=== PATIENT | male | born 1935 | race Caucasian/White ===

== ENCOUNTER 2016-11-12 13:27 | Emergency (ER) | payer MEDICARE ==
[2016-11-12] MEDS ORDERED: cloNIDine HCl 0.1 MG TAB ONE (14:10)
[2016-11-12 14:12] LABS: #Monocytes 0.3 thou/uL (0.11-0.59); #Neutrophils 4.2 thou/uL (1.40-6.50); %Basophils 0.3 % (0.0-1.0); %Eosinophils 0.4 % (0.0-10.0); %Monocytes 5.8 % (0.0-10.0); Hematocrit 48.7 % (42.0-52.0); Mean Platelet Volume 10.7 fL (7.4-10.4); White Blood Cell (WBC) Count 5.5 thou/uL (4.8-10.8)
[2016-11-12 14:19] LABS: Calcium 8.9 mg/dL (7.8-10.44); Chloride 102 mmol/L (98-107)
[2016-11-12 14:26] LABS: PTT 46.5 SEC (22.9-36.1); Prothrombin Time 16.4 SEC (12.0-14.7)
[2016-11-12 14:31] LABS: Troponin I 0.063 ng/mL (< 0.028)
[2016-11-12 14:33] LABS: ALT (SGPT) 28 U/L (0-55); AST (SGOT) 34 U/L (5-34); Alkaline Phosphatase 59 U/L (40-150); BUN (Urea Nitrogen) 12 mg/dL (8.4-25.7); Bilirubin, Total 1.1 mg/dL (0.2-1.2); CK (CPK) 105 U/L (30-200); Calc. Creatinine Clearance 0 mL/min (70-130); Carbon Dioxide 28 mmol/L (23-31); Estimated GFR-MDRD 71; Globulin 3.2 g/dL (2.4-3.5); Protein, Total 7.7 g/dL (5.8-8.1)
[2016-11-12 14:40] LABS: Anion Gap 14 mmol/L (10-20)
[2016-11-12 14:50] LABS: Bilirubin Negative (Negative); Blood, Urine Small (Negative); Glucose, Urine (Dipstick) Negative (Negative); Ketone, Urine Negative (Negative); Nitrite Negative (Negative); Protein, Urine (Dipstick) 100 mg/dL (Neg-Trace); Urobilinogen 0.2 mg/dL (0.2-1.0)
[2016-11-12 15:04] LABS: Bacteria/HPF None Seen HPF (None Seen); RBC/HPF 0-3 HPF (0-3); Squamous Epithelial 0-3 HPF (0-3); WBC/HPF None Seen HPF (0-3)
[2016-11-12] MEDS ORDERED: Pot Chloride/Pot Bicarb/Cit Ac 25 mEq Effervescent Tablet ONE (15:07)
--- NOTE | 2016-11-12 16:51 | ERRECORD ---
[facility] EMERGENCY RECORD HPI WEAK-DIZZY (17:01 MPUR) CHIEF COMPLAINT: Denies weakness, Patient presents for evaluation of dizziness, Denies lightheadedness, Denies mental status changes. HISTORIAN: History provided by patient, 81 y.o. male who awoke from a nap and felt dizzy. he checked his BP and found it to be high so he came to the ED. Pt other than some vertigo has no complaints. QUALITY: Patient is alert and oriented to person, place and time, Dorothy coma score is 15. ASSOCIATED WITH: No associated ataxia, No associated chest pain, No associated chills, No associated ear pain, No associated fever, No associated gait disturbance, No associated headache, No associated nausea, No associated palpitations, No associated vomiting, No associated visual changes, No associated upper respiratory infection. EXACERBATED BY: Patient's condition exacerbated by nothing. RELIEVED BY: Patient's condition relieved by nothing. ROS (17:03 MPUR) CONSTITUTIONAL: Historian denies fever. EYES: Historian denies eye pain. ENT: Historian denies rhinorrhea. CARDIOVASCULAR: Historian denies chest pain. RESPIRATORY: Historian denies cough. GI: Historian denies diarrhea, Historian denies vomiting. GENITOURINARY MALE: Historian denies dysuria. MUSCULOSKELETAL: Historian denies arthralgias. SKIN: Historian denies rash. NEUROLOGIC: Historian denies seizures. see also HPI. ENDOCRINE: Historian denies skin changes. HEMO/LYMPHATIC: Historian denies easy bruising. PAST MEDICAL HISTORY (13:46 JPAR) MEDICAL HISTORY: Past medical history includes cardiac history, coronary artery disease, Treated with stent placement, , Past medical history includes cardiac history, coronary artery disease, congestive heart failure, arrhythmia, atrial fibrillation, Treated with a pacemaker, 8 years ago, Past medical history includes history of hyperlipidemia, high cholesterol, Past medical history includes history of hypertension, which has been treated. MALE SURGICAL HISTORY: PACEMAKER. 2nd pacemaker. PSYCHIATRIC HISTORY: No previous psychiatric history. SOCIAL HISTORY: Patient is a former tobacco user, smoked cigarettes, quit 3 years ago , Patient drinks socially, every week, Patient denies drug use,. KNOWN ALLERGIES No Known Allergies No Known Drug Allergies (Unconfirmed) &a-1R&a+25V*p+0X*[id number]*c202B*c15G*c2P*p-0X&a-25V&a+1R Name: Hugo Slater : 1935 M81 MedRec: [id number] AcctNum: [id number] Prepared: Alon Nov 12, 2016 17:15 by Interface Page [address] [facility] EMERGENCY RECORD CURRENT MEDICATIONS (13:44 JPAR) carvedilol: TABLET : Strength - 25 mg : ORAL Patient Dose: 25 mg Oral 2 times a day. furosemide: TABLET : Strength - 40 mg : ORAL Patient Dose: 60 mg Oral. lisinopril: TABLET : Strength - 20 mg : ORAL Patient Dose: 20 mg Oral 2 times a day (before meals). simvastatin: TABLET : Strength - 40 mg : ORAL Patient Dose: 20 mg Oral. tamsulosin: CAPSULE, EXT RELEASE 24 HR : Strength - 0.4 mg : ORAL Patient Dose: 0.4 mg Oral. gabapentin: CAPSULE : Strength - 300 mg : ORAL Patient Dose: once a day (at bedtime). amLODIPine: TABLET : Strength - 2.5 mg : ORAL Patient Dose: once a day. Xarelto: TABLET : Strength - 10 mg : ORAL Patient Dose: once a day (in the morning). VITAL SIGNS VITAL SIGNS: Pulse: 60, Resp: 16, Temp: 98.5 (Oral), Pain: 0, O2 sat: 97, Time: 11/12/2016 13:41. (13:41 JPAR) BP: 214/104, Pulse: 60, Resp: 16 (Non-Labored), O2 sat: 96 on Room Air, Time: 11/12/2016 14:03. (14:03 EPIE) BP: 161/71, Pulse: 60, Resp: 13, Pain: 0, O2 sat: 97, Time: 11/12/2016 14:12. (14:12 JPAR) BP: 177/67, Pulse: 60, Resp: 18, Pain: 0, O2 sat: 97, Time: 11/12/2016 14:50. (14:50 JPAR) BP: 161/84, Pulse: 60, Resp: 14, Pain: 0, O2 sat: 97, Time: 11/12/2016 16:07. (16:07 JPAR) BP: 168/85, Pulse: 60, Resp: 16, Pain: 0, O2 sat: 97, Time: 11/12/2016 16:30. (16:30 JPAR) PHYSICAL EXAM (17:03 MPUR) CONSTITUTIONAL: Vital signs reviewed. HEAD: Head exam included findings of head atraumatic. EYES: Eye exam included findings of eyelids normal to inspection, Sclera normal. ENT: Nose exam normal, no nasal deformity, mucous membranes moist. NECK: Trachea midline, no contusions. RESPIRATORY CHEST: Respiratory exam included findings of no respiratory distress, Breath sounds clear, no increased work of &a-1R&a+25V*p+0X*[id number]*c202B*c15G*c2P*p-0X&a-25V&a+1R Name: Hugo Slater : 1935 M81 MedRec: [id number] AcctNum: [id number] Prepared: FriNov 12, 2016 17:15 by Interface Page [address] [facility] EMERGENCY RECORD breathing, rate nl. CARDIOVASCULAR: Cardiovascular exam included findings of heart rate regular rate and rhythm, Heart sounds normal. ABDOMEN MALE: Abdominal exam included findings of abdomen nontender, no mass, no percussion. LOWER EXTREMITY: no cyanosis, no edema. NEURO: HINTS negative, Speech normal, Memory normal, alert, moving all extremities well. SKIN: Skin exam included findings of skin warm, dry, no rash. PSYCHIATRIC: Normal affect, Recent memory normal. MEDICATION ADMINISTRATION SUMMARY Drug Name: *potassium bicarb & chloride, Dose Ordered: 50 mEq, Route: Oral, Status: Given, Time: 15:15 11/12/2016, Drug Name: cloNIDine HCl, Dose Ordered: 0.1 mg, Route: Oral, Status: Given, Time: 14:11 11/12/2016, *Additional information available in notes, Detailed record available in Medication Service section. DOCTOR NOTES RE-EVALUATION: The patient's condition has improved, BP down, sx resolved, feels better after resting. (16:35 MPUR) TEXT: I have reviewed and agree with nurse's past medical, family, and social history as documented on chart. Pt's vital signs have been reviewed. (17:03 MPUR) D/W: Discussed this case with Dr. Barber, the primary care physician, reviewed pt hx, lab and need for F/U. (17:06 MPUR) PROBLEM LIST No recorded problems DIAGNOSIS (16:17 MPUR) FINAL: PRIMARY: Vertigo, ADDITIONAL: High BP. PRESCRIPTION (16:18 MPUR) cloNIDine HCl: TABLET : 0.1 mg : ORAL : Quantity: 1 Unit: tab(s) Route: ORAL Schedule: once a day Dispense: 14 May substitute. Refills: No Refills POTENTIAL SEVERE INTERACTION: carvedilol Override Rationale: Benefits outweigh risks. NOTES: take 1 a day for elevation of BP more than 170. No Refills. DISPOSITION PATIENT: Disposition Type: Discharge, Disposition: *Discharge Home. (16:17 MPUR) Patient left the department. (16:43 JPAR) Leos: DENILSON=MIKE Lerma, Ester ALEX=MIKE Mccabe, Clarence MPUR=MD Davon, Mynor &a-1R&a+25V*p+0X*[id number]*c202B*c15G*c2P*p-0X&a-25V&a+1R Name: Hugo Slater Michelle : 1935 M81 MedRec: [id number] AcctNum: [id number] Prepared: Alon Nov 12, 2016 17:15 by Interface Page 3 of 3 pMD MTDD
--- NOTE | 2016-11-12 17:02 | PICIS ---
[facility] EMERGENCY RECORD COMMUNICATIONS (14:42 JPAR) COMMUNICATIONS: Critical lab value, Notes: Lab reports CK 6.7. TRIAGE (13:43 JPAR) TRIAGE NOTES: Just woke up hypertensive and dizzy. (13:43 JPAR) PATIENT: NAME: Hugo Slater, AGE: 81, GENDER: male, : Fri1935, TIME OF GREET: FriNov 12, 2016 13:27, PREFERRED LANGUAGE: Serbian, ETHNICITY: Not or , ECODE BILLING MAP: [facility], SSN: [id number], Zip Code: [address], KG WEIGHT: 97.52, PHONE: daugh, , , PERSON ID: [id number], PCP: Elise IBRAHIM C. HENRY. (13:43 JPAR) COMPLAINT: LIGHT HEADED,DIZZY. (13:43 JPAR) ADMISSION: URGENCY: 3 Urgent, ADMISSION SOURCE: Home, TRANSPORT: CAR, BED: TRIAGE. (13:43 JPAR) ASSESSMENT: Assessment: hypertension, dizziness, Symptoms began 7 hours, Symptoms began 7 hours ago. (13:46 JPAR) SIRS SCORING: Heart Rate 55-109 (0), Temp range 96.8-101.1 (0), respiratory rate 12-24 (0), Mental Status altered: no (0), Infection or Suspected Infection: No. (13:46 JPAR) TRIAGE SCREENING: Patient denies suicidal ideation, Patient denies presence of domestic violence. (13:46 JPAR) PROVIDERS: TRIAGE NURSE: Clarence Mccabe RN. (13:43 JPAR) VITAL SIGNS: Pulse 60, Resp 16, Temp 98.5, (Oral), Pain 0, O2 Sat 97, Time 11/12/2016 13:41. (13:41 JPAR) PREVIOUS VISIT ALLERGIES: No Known Drug Allergies. (13:43 JPAR) No Known Drug Allergies. (13:46 JPAR) KNOWN ALLERGIES No Known Allergies No Known Drug Allergies (Unconfirmed) CURRENT MEDICATIONS (13:44 JPAR) carvedilol: TABLET : Strength - 25 mg : ORAL Patient Dose: 25 mg Oral 2 times a day. furosemide: TABLET : Strength - 40 mg : ORAL Patient Dose: 60 mg Oral. lisinopril: TABLET : Strength - 20 mg : ORAL Patient Dose: 20 mg Oral 2 times a day (before meals). simvastatin: TABLET : Strength - 40 mg : ORAL Patient Dose: 20 mg Oral. tamsulosin: CAPSULE, EXT RELEASE 24 HR : Strength - 0.4 mg : ORAL Patient Dose: 0.4 mg Oral. &a-1R&a+25V*p+0X*f8358Q*c202B*c15G*c2P*p-0X&a-25V&a+1R Name: Hugo Slater : 1935 M81 MedRec: [id number] AcctNum: [id number] Prepared: rosa Nov 12, 2016 17:21 by Interface Page 1 of 11 pMD [facility] EMERGENCY RECORD gabapentin: CAPSULE : Strength - 300 mg : ORAL Patient Dose: once a day (at bedtime). amLODIPine: TABLET : Strength - 2.5 mg : ORAL Patient Dose: once a day. Xarelto: TABLET : Strength - 10 mg : ORAL Patient Dose: once a day (in the morning). VITAL SIGNS VITAL SIGNS: Pulse: 60, Resp: 16, Temp: 98.5 (Oral), Pain: 0, O2 sat: 97, Time: 11/12/2016 13:41. (13:41 JPAR) BP: 214/104, Pulse: 60, Resp: 16 (Non-Labored), O2 sat: 96 on Room Air, Time: 11/12/2016 14:03. (14:03 EPIE) BP: 161/71, Pulse: 60, Resp: 13, Pain: 0, O2 sat: 97, Time: 11/12/2016 14:12. (14:12 JPAR) BP: 177/67, Pulse: 60, Resp: 18, Pain: 0, O2 sat: 97, Time: 11/12/2016 14:50. (14:50 JPAR) BP: 161/84, Pulse: 60, Resp: 14, Pain: 0, O2 sat: 97, Time: 11/12/2016 16:07. (16:07 JPAR) BP: 168/85, Pulse: 60, Resp: 16, Pain: 0, O2 sat: 97, Time: 11/12/2016 16:30. (16:30 JPAR) NURSING ASSESSMENT: CARDIOVASCULAR (13:43 JPAR) CONSTITUTIONAL: Patient arrives ambulatory, Gait steady, History obtained from patient, Patient appears comfortable, Patient cooperative, Patient alert, Oriented to person, place and time, Skin warm, Skin dry, Skin normal in color, Mucous membranes pink, Patient complains of Hypertension w/ dizziness. PAIN: Patient rates pain as 0 out of 10. CARDIOVASCULAR: Cardiovascular assessment findings include heart rate normal, Heart rhythm, paced, No ST changes noted, Left radial pulse +3(easily palpated, considered normal), Right radial pulse +3(easily palpated, considered normal), Left dorsalis pedis pulse +3(easily palpated, considered normal), Right dorsalis pedis pulse +3(easily palpated, considered normal). RESPIRATORY/CHEST: Breath sounds clear, Respiratory assessment findings include respiratory effort easy, Respirations regular, Conversing normally, Neck and chest exam findings include trachea midline, Chest expansion equal, Chest movement symmetrical, no signs of distress, no retractions noted, no cyanosis, no jugular vein distension, no tenderness to palpation, no crepitus noted, no subcutaneous emphysema noted, no deformity noted. SAFETY: Side rails up, Cart/Stretcher in lowest position, Call light within reach, Hospital ID band on. NURSING PROCEDURE: COMMUNICATIONS (16:21 EPIE) COMMUNICATIONS: Physician, contacted/paged at 1621, Returned call at 1621, Sunil LEONARD contacted at this time. &a-1R&a+25V*p+0X*v0530Q*c202B*c15G*c2P*p-0X&a-25V&a+1R Name: Hugo Slater : 1935 M81 MedRec: [id number] AcctNum: [id number] Prepared: Alon Nov 12, 2016 17:21 by Interface Page 2 of 11 pMD [facility] EMERGENCY RECORD NURSING PROCEDURE: DISCHARGE NOTE (16:38 JPAR) DISCHARGE: Patient discharged to home, ambulating without assistance, friend driving, accompanied by friend, Summary of Care printed/ provided, Patient requested and was provided an electronic copy of Discharge Instructions, Transition record given to patient, Discharge instructions given to patient, Simple or moderate discharge teaching performed, decrease sodium intake and consume more water, take BP meds as prescribed and take the clonidine when systolic above 170. Follow up with Sunil this week., Prescriptions given and instructions on side effects given, Name of prescription(s) given: Clonidine, Medication reconciliation form given, Above person(s) verbalized understanding of discharge instructions and follow-up care, Patient treated and evaluated by physician. BELONGINGS: Belongings and valuables with patient at time of discharge include:, Belongings remain with patient, Valuables remain with patient. SAFETY: Side rails up, Cart/Stretcher in lowest position, Call light within reach, Hospital ID band on, Friend(s) at bedside. NURSING PROCEDURE: EKG CHART (13:51 JPAR) PATIENT IDENTIFIER: Patient actively involved in identification process, Patient's identity verified by patient stating name, Patient's identity verified by patient stating date, Patient's identity verified by hospital ID bracelet, Patient's identity verified by family member. EKG: EKG indicated for Hypertensive crisis, 12 lead EKG performed on the left chest, first EKG. FOLLOW-UP: After procedure, EKG for interpretation given to Dr. Mays. SAFETY: Side rails up, Cart/Stretcher in lowest position, Call light within reach, Hospital ID band on. NURSING PROCEDURE: IV PATIENT IDENITIFIER: Patient actively involved in identification process, Patient's identity verified by patient stating name, Patient's identity verified by hospital ID bracelet. (14:02 EPIE) IV SITE 1: IV established, to the right hand, using a 20 gauge catheter, in one attempt, IV site prepped with CHLOROPREP, Saline lock established, Flushed with normal saline (mls): 10, Labs drawn at time of placement, labeled in the presence of the patient and sent to lab. (14:02 EPIE) FOLLOW-UP SITE 1: After procedure, no drainage at IV site, After procedure, no swelling at IV site, After procedure, no redness at IV site. (14:02 EPIE) FOLLOW-UP SITE 2: After procedure, 2x2 dressing applied, After procedure, no drainage at IV site, After procedure, no swelling at IV site, After procedure, no redness at IV site, IV discontinued, due to patient being discharged, catheter intact. (16:38 JPAR) &a-1R&a+25V*p+0X*p9332U*c202B*c15G*c2P*p-0X&a-25V&a+1R Name: Hugo Slater : 1935 M81 MedRec: [id number] AcctNum: [id number] Prepared: FriNov 12, 2016 17:21 by Interface Page 3 of 11 D [facility] EMERGENCY RECORD NURSING PROCEDURE: NURSE NOTES (15:18 JPAR) NURSES NOTES: Patient assisted to bathroom with steady gait, Patient is improving, Patient is awaiting disposition, Patient re-positioned to semi-Monsivais's position, Patient ambulating with steady gait, without assistance, not ataxic. ORDER DETAILS Order Name: Cardiac Profile w/CKMB & Troponin - I, Status: Active, Time: 13:53 11/12/2016, User: GRADY, - Ordered for: MD Mays Marcus, - Entered by: MD Mays Marcus - Tue Nov 12, 2016 13:53, - Quantity: 1, Order Name: CBC with Differential, Status: Active, Time: 13:53 11/12/2016, User: GRADY, - Ordered for: MD Mays Marcus, - Entered by: MD Mays Marcus - Tue Nov 12, 2016 13:53, - Quantity: 1, Order Name: CK (CPK), Status: Active, Time: 13:53 11/12/2016, User: GRADY, - Ordered for: MD Mays Marcus, - Entered by: MD Mays Marcus - Tue Nov 12, 2016 13:53, - Quantity: 1, Order Name: Comprehensive Metabolic Panel, Status: Active, Time: 13:53 11/12/2016, User: GRADY, - Ordered for: MD Mays Marcus, - Entered by: MD Mays Marcus - Tue Nov 12, 2016 13:53, - Quantity: 1, Order Name: EKG 12 Lead in Emergency Room, Status: Active, Time: 13:59 11/12/2016, User: GRADY, - Ordered for: MD Mays Marcus, - Entered by: MD Mays Marcus - Tue Nov 12, 2016 13:59, - Quantity: 1, Order Name: Protime with INR, Status: Active, Time: 13:59 11/12/2016, User: GRADY, - Ordered for: MD Mays Marcus, - Entered by: MD Mays Marcus - Tue Nov 12, 2016 13:59, - Quantity: 1, Order Name: PTT, Status: Active, Time: 13:59 11/12/2016, User: GRADY, - Ordered for: MD Mays Marcus, - Entered by: MD Mays Marcus - Tue Nov 12, 2016 13:59, - Quantity: 1, Order Name: SALINE LOCK, Status: Done, Time: 14:02 11/12/2016, User: DENILSON, - Ordered for: MD Mays Marcus, - Entered by: MD Mays Marcus - Tue Nov 12, 2016 13:59, - Quantity: 1, Order Name: Urinalysis with Microscopic, Status: Active, Time: 13:53 11/12/2016, User: GRADY, &a-1R&a+25V*p+0X*k7649D*c202B*c15G*c2P*p-0X&a-25V&a+1R Name: Hugo Slater : 1935 M81 MedRec: [id number] AcctNum: [id number] Prepared: FriNov 12, 2016 17:21 by Interface Page 4 of 11 D [facility] EMERGENCY RECORD - Ordered for: MD Mays Marcus, - Entered by: MD Mays Marcus - Tue Nov 12, 2016 13:53, - Quantity: 1. MEDICATION ADMINISTRATION SUMMARY Drug Name: *potassium bicarb & chloride, Dose Ordered: 50 mEq, Route: Oral, Status: Given, Time: 15:15 11/12/2016, Drug Name: cloNIDine HCl, Dose Ordered: 0.1 mg, Route: Oral, Status: Given, Time: 14:11 11/12/2016, *Additional information available in notes, Detailed record available in Medication Service section. MEDICATION SERVICE cloNIDine HCl: Order: cloNIDine HCl (clonidine HCl) - Dose: 0.1 mg : Oral POTENTIAL SEVERE INTERACTION: carvedilol - Benefits outweigh risks Ordered by: Mynor Mays MD Entered by: Mynor Mays MD FriNov 12, 2016 13:59 , Acknowledged by: Clarence Mccabe RN FriNov 12, 2016 14:09 Documented as given by: Clarence Mccabe RN Nov 12, 2016 14:11 Patient, Medication, Dose, Route and Time verified prior to administration. Patient appears Awake and alert- acceptable, Correct patient, time, route, dose and medication confirmed prior to administration, Patient advised of actions and side-effects prior to administration, Allergies confirmed and medications reviewed prior to administration, Patient in position of comfort, Side rails up, Cart in lowest position, Call light in reach. potassium bicarb & chloride: Order: potassium bicarb & chloride (potassium chloride/potassium bicarbonate/citric acid) - Dose: 50 mEq : Oral Schedule: Now Notes: 2-25 meq tabs (50 meq liquid K+) Ordered by: Mynor Mays MD Entered by: Mynor Mays MD FriNov 12, 2016 14:53 , Acknowledged by: Clarence Mccabe RN Nov 12, 2016 15:07 Documented as given by: Clarence Mccabe RN Nov 12, 2016 15:15 Patient, Medication, Dose, Route and Time verified prior to administration. Correct patient, time, route, dose and medication confirmed prior to administration, Patient advised of actions and side-effects prior to administration, Allergies confirmed and medications reviewed prior to administration, Patient in position of comfort, Side rails up, Cart in lowest position, Family at bedside, Call light in reach. HPI WEAK-DIZZY (17:01 MPUR) CHIEF COMPLAINT: Denies weakness, Patient presents for evaluation of dizziness, Denies lightheadedness, Denies mental status changes. HISTORIAN: History provided by patient, 81 y.o. male who awoke from a nap and felt dizzy. he checked his &a-1R&a+25V*p+0X*z9101F*c202B*c15G*c2P*p-0X&a-25V&a+1R Name: Hugo Slater : 1935 M81 MedRec: [id number] AcctNum: [id number] Prepared: FriNov 12, 2016 17:21 by Interface Page 5 of 11 pMD [facility] EMERGENCY RECORD BP and found it to be high so he came to the ED. Pt other than some vertigo has no complaints. QUALITY: Patient is alert and oriented to person, place and time, [place] coma score is 15. ASSOCIATED WITH: No associated ataxia, No associated chest pain, No associated chills, No associated ear pain, No associated fever, No associated gait disturbance, No associated headache, No associated nausea, No associated palpitations, No associated vomiting, No associated visual changes, No associated upper respiratory infection. EXACERBATED BY: Patient's condition exacerbated by nothing. RELIEVED BY: Patient's condition relieved by nothing. ROS (17:03 MPUR) CONSTITUTIONAL: Historian denies fever. EYES: Historian denies eye pain. ENT: Historian denies rhinorrhea. CARDIOVASCULAR: Historian denies chest pain. RESPIRATORY: Historian denies cough. GI: Historian denies diarrhea, Historian denies vomiting. GENITOURINARY MALE: Historian denies dysuria. MUSCULOSKELETAL: Historian denies arthralgias. SKIN: Historian denies rash. NEUROLOGIC: Historian denies seizures. see also HPI. ENDOCRINE: Historian denies skin changes. HEMO/LYMPHATIC: Historian denies easy bruising. PAST MEDICAL HISTORY (13:46 JPAR) MEDICAL HISTORY: Past medical history includes cardiac history, coronary artery disease, Treated with stent placement, , Past medical history includes cardiac history, coronary artery disease, congestive heart failure, arrhythmia, atrial fibrillation, Treated with a pacemaker, 8 years ago, Past medical history includes history of hyperlipidemia, high cholesterol, Past medical history includes history of hypertension, which has been treated. MALE SURGICAL HISTORY: PACEMAKER. 2nd pacemaker. PSYCHIATRIC HISTORY: No previous psychiatric history. SOCIAL HISTORY: Patient is a former tobacco user, smoked cigarettes, quit 3 years ago , Patient drinks socially, every week, Patient denies drug use,. PHYSICAL EXAM (17:03 MPUR) CONSTITUTIONAL: Vital signs reviewed. HEAD: Head exam included findings of head atraumatic. EYES: Eye exam included findings of eyelids normal to inspection, Sclera normal. ENT: Nose exam normal, no nasal deformity, mucous membranes moist. NECK: Trachea midline, no contusions. RESPIRATORY CHEST: Respiratory exam included findings of no &a-1R&a+25V*p+0X*i9069T*c202B*c15G*c2P*p-0X&a-25V&a+1R Name: Hugo Slater : 1935 M81 MedRec: [id number] AcctNum: [id number] Prepared: FriNov 12, 2016 17:21 by Interface Page 6 of 11 pMD [facility] EMERGENCY RECORD respiratory distress, Breath sounds clear, no increased work of breathing, rate nl. CARDIOVASCULAR: Cardiovascular exam included findings of heart rate regular rate and rhythm, Heart sounds normal. ABDOMEN MALE: Abdominal exam included findings of abdomen nontender, no mass, no percussion. LOWER EXTREMITY: no cyanosis, no edema. NEURO: HINTS negative, Speech normal, Memory normal, alert, moving all extremities well. SKIN: Skin exam included findings of skin warm, dry, no rash. PSYCHIATRIC: Normal affect, Recent memory normal. LAB INTERPRETATION (17:03 MPUR) INTERPRETATION: No significant lab abnormalities except as noted above. EVENTS TRANSFER: Triage to Emergency Triage. (FriNov 12, 2016 13:43 JPAR) Emergency Triage to Emergency Room -04. (13:51 JPAR) Removed from Emergency Emergency Room -04. (16:43 JPAR) DOCTOR NOTES RE-EVALUATION: The patient's condition has improved, BP down, sx resolved, feels better after resting. (16:35 MPUR) TEXT: I have reviewed and agree with nurse's past medical, family, and social history as documented on chart. Pt's vital signs have been reviewed. (17:03 MPUR) D/W: Discussed this case with Dr. Ibrahim, the primary care physician, reviewed pt hx, lab and need for F/U. (17:06 MPUR) PROBLEM LIST No recorded problems DIAGNOSIS (16:17 MPUR) FINAL: PRIMARY: Vertigo, ADDITIONAL: High BP. DISPOSITION PATIENT: Disposition Type: Discharge, Disposition: *Discharge Home. (16:17 MPUR) Patient left the department. (16:43 JPAR) INSTRUCTION (16:23 MPUR) FOLLOWUP: Elise IBRAHIM, Waqar MONAHAN, [facility], [address] [place] [id number], [phone]. SPECIAL: increase your potassium to 1 tablet a day. Follow up with Dr. Ibrahim in a week. Take meclizine 25 mg up to 3 times a day as needed for dizziness. (Ask your pharmacist for this medicine as it is available with a Rx.) &a-1R&a+25V*p+0X*a9717F*c202B*c15G*c2P*p-0X&a-25V&a+1R Name: Hugo Slater : 1935 M81 MedRec: [id number] AcctNum: [id number] Prepared: FriNov 12, 2016 17:21 by Interface Page 7 of 11 pMD [facility] EMERGENCY RECORD Take all your meds with you to the office next week so Dr. Ibrahim can see them. PRESCRIPTION (16:18 MPUR) cloNIDine HCl: TABLET : 0.1 mg : ORAL : Quantity: 1 Unit: tab(s) Route: ORAL Schedule: once a day Dispense: 14 May substitute. Refills: No Refills POTENTIAL SEVERE INTERACTION: carvedilol Override Rationale: Benefits outweigh risks. NOTES: take 1 a day for elevation of BP more than 170. No Refills. IMAGING *SUPPLY CHARGE SHEET: Image captured from scanner. (16:38 JPAR) *DISCHARGE INSTRUCTIONS RECEIPT: Image captured from scanner. (16:39 JPAR) *EKG: Image captured from scanner. (16:39 JPAR) ADMIN (17:07 MPUR) DIGITAL SIGNATURE: MD Mays Marcus. RESULTS LABORATORY: CK (CPK) Collection DT: FriNov 12, 2016 14:09, CK (CPK) 105 U/L, Range (30-200). (14:40 JPAR) Comprehensive Metabolic Panel Collection DT: FriNov 12, 2016 14:09, Sodium 141 mmol/L, Range (136-145), *Potassium 3.1 - L mmol/L, Range (3.5-5.1), Chloride 102 mmol/L, Range (98-107), Carbon Dioxide 28 mmol/L, Range (23-31), BUN (Urea Nitrogen) 12 mg/dL, Range (8.4-25.7), Creatinine 1.00 mg/dL, Range (0.7-1.3), Estimated GFR-MDRD 71 , Reference Range for Estimated GFR: Greater than 90, mL/min/1.73 m2 NOTE: The MDRD equation has not been validated for use, with the elderly (over 70 years of age), women, patients with, serious comorbid condition or persons with extremes of body size, muscle, mass, or nutritional status. , *Glucose 144 - H mg/dL, Range (83-110), Calcium 8.9 mg/dL, Range (7.8-10.44), Bilirubin, Total 1.1 mg/dL, Range (0.2-1.2), Protein, Total 7.7 g/dL, Range (5.8-8.1), NOTE: Plasma values are generally 0.3 to 0.5 g/dL higher than serum values, due to the presence of fibrinogen. , Albumin 4.5 g/dL, Range (3.4-4.8), Globulin 3.2 g/dL, Range (2.4-3.5), Alb/Glob Ratio 1.4 g/dL, Range (1.2-2.2), Alkaline Phosphatase 59 U/L, Range (40-150), AST (SGOT) 34 U/L, Range (5-34), &a-1R&a+25V*p+0X*l0823X*c202B*c15G*c2P*p-0X&a-25V&a+1R Name: Hugo Slater : 1935 M81 MedRec: [id number] AcctNum: [id number] Prepared: FriNov 12, 2016 17:21 by Interface Page 8 of 11 pMD [facility] EMERGENCY RECORD ALT (SGPT) 28 U/L, Range (0-55). (14:40 JPAR) Cardiac Profile w/CKMB & TropI Collection DT: FriNov 12, 2016 14:09, *Troponin I 0.063 - H ng/mL, Range (< 0.028), Reference Range , 0.00 - 0.028 ng/mL Negative 0.029 - 0.29 ng/mL , Indeterminate Greater or Equal to 0.3 ng/mL Strongly suggests [place] , . (14:40 JPAR) PTT Collection DT: FriNov 12, 2016 14:09, See comment below , Anticoagulant? OTHER; SEE COMMENTS Medical Necessity SUSPECT COAGULOPATHY , Comment Xatitoto Comment Elianeto , *PTT 46.5 - H SEC, Range (22.9-36.1). (14:40 JPAR) Protime with INR Collection DT: FriNov 12, 2016 14:09, See comment below , Anticoagulant? OTHER; SEE COMMENTS Medical Necessity SUSPECT COAGULOPATHY , Comment Xarelto Comment Elianeto , *Prothrombin Time 16.4 - H SEC, Range (12.0-14.7), INR-International Normal Ratio 1.3 , ATTENTION: READ CAREFULLY , The, recommended therapeutic ranges for oral anticoagulant treatments are: , , Low Intensity: 1.5 - 2.0 Moderate Intensity: 2.0, - 3.0 High Intensity (1): 2.5 - 3.5 High, Intensity (2): 3.0 - 4.0 CRITICAL: >, 4.0 . (14:40 JPAR) CBC with Differential Collection DT: FriNov 12, 2016 14:09, White Blood Cell (WBC) Count 5.5 thou/uL, Range (4.8-10.8), Red Blood Cell (RBC) Count 5.20 mill/uL, Range (4.70-6.10), Hemoglobin 16.0 g/dL, Range (14.0-18.0), Hematocrit 48.7 %, Range (42.0-52.0), Mean Corpuscular Volume 93.8 fl, Range (80.0-94.0), Mean Corpuscular Hemoglobin 30.8 pg, Range (27.0-31.0), Mean Corpuscular HGB CONC 32.8 g/dL, Range (32.0-36.0), RBC Distribution Width 12.6 %, Range (11.5-14.5), *Platelet Count 124 - L thou/uL, Range (130-400), *Mean Platelet Volume 10.7 - H fL, Range (7.4-10.4), *%Neutrophils 75.5 - H %, Range (42.0-75.0), &a-1R&a+25V*p+0X*d9039Y*c202B*c15G*c2P*p-0X&a-25V&a+1R Name: Hugo Slater : 1935 M81 MedRec: [id number] AcctNum: [id number] Prepared: FriNov 12, 2016 17:21 by Interface Page 9 of 11 pMD [facility] EMERGENCY RECORD *%Lymphocytes 18.0 - L %, Range (21.0-51.0), %Monocytes 5.8 %, Range (0.0-10.0), %Eosinophils 0.4 %, Range (0.0-10.0), %Basophils 0.3 %, Range (0.0-1.0), #Neutrophils 4.2 thou/uL, Range (1.40-6.50), *#Lymphocytes 1.0 - L thou/uL, Range (1.20-3.40), #Monocytes 0.3 thou/uL, Range (0.11-0.59), #Eosinphils 0.0 thou/uL, Range (0.0-0.7), #Basophils 0.0 thou/uL, Range (0.0-0.2). (14:40 JPAR) Cardiac Profile w/CKMB & TropI Collection DT: FriNov 12, 2016 14:09, Critical Call CKMBM CALLED W/READ BACK , *CKMB 6.7 - *H ng/mL, Range (0-6.6), NOTIFIED DR MAYS 2010.NW, *Troponin I 0.063 - H ng/mL, Range (< 0.028), Reference Range , 0.00 - 0.028 ng/mL Negative 0.029 - 0.29 ng/mL , Indeterminate Greater or Equal to 0.3 ng/mL Strongly suggests [place] , . (14:46 MPUR) CK (CPK) Collection DT: FriNov 12, 2016 14:09, CK (CPK) 105 U/L, Range (30-200). (14:46 MPUR) Comprehensive Metabolic Panel Collection DT: FriNov 12, 2016 14:09, Sodium 141 mmol/L, Range (136-145), *Potassium 3.1 - L mmol/L, Range (3.5-5.1), Chloride 102 mmol/L, Range (98-107), Carbon Dioxide 28 mmol/L, Range (23-31), Anion Gap 14 mmol/L, Range (10-20), BUN (Urea Nitrogen) 12 mg/dL, Range (8.4-25.7), Creatinine 1.00 mg/dL, Range (0.7-1.3), Estimated GFR-MDRD 71 , Reference Range for Estimated GFR: Greater than 90, mL/min/1.73 m2 NOTE: The MDRD equation has not been validated for use, with the elderly (over 70 years of age), women, patients with, serious comorbid condition or persons with extremes of body size, muscle, mass, or nutritional status. , *Glucose 144 - H mg/dL, Range (83-110), Calcium 8.9 mg/dL, Range (7.8-10.44), Bilirubin, Total 1.1 mg/dL, Range (0.2-1.2), Protein, Total 7.7 g/dL, Range (5.8-8.1), NOTE: Plasma values are generally 0.3 to 0.5 g/dL higher than serum values, due to the presence of fibrinogen. , Albumin 4.5 g/dL, Range (3.4-4.8), Globulin 3.2 g/dL, Range (2.4-3.5), Alb/Glob Ratio 1.4 g/dL, Range (1.2-2.2), Alkaline Phosphatase 59 U/L, Range (40-150), AST (SGOT) 34 U/L, Range (5-34), ALT (SGPT) 28 U/L, Range (0-55). (14:46 MPUR) &a-1R&a+25V*p+0X*n7760S*c202B*c15G*c2P*p-0X&a-25V&a+1R Name: Hugo Slater : 1935 M81 MedRec: [id number] AcctNum: [id number] Prepared: FriNov 12, 2016 17:21 by Interface Page 10 of 11 pMD [facility] EMERGENCY RECORD Leos: DENILSON=MIKE Lerma, Ester ALEX=MIKE Mccabe, Clarence MPUR=MD Mays Marcus &a-1R&a+25V*p+0X*o2155J*c202B*c15G*c2P*p-0X&a-25V&a+1R Name: Hugo Slater : 1935 M81 MedRec: [id number] AcctNum: [id number] Prepared: FriNov 12, 2016 17:21 by Interface Page 11 of 11 pMD MTDD
== END 2016-11-12 16:38 | disposition home or self-care (01) ==
LOC: NAV ERS 13:27
DX: I11.0 Hypertensive heart disease with heart failure (principal); I50.9 Heart failure, unspecified; I48.91 Unspecified atrial fibrillation; E78.5 Hyperlipidemia, unspecified
CPT/HCPCS: 80053; 81001; 82550; 82553; 84484; 85025; 85610; 85730; 93005

== ENCOUNTER 2016-11-14 13:06 | Outpatient (CLI) | payer MEDICARE ==
[2016-11-14 16:01] LABS: Blood, Urine Small (Negative); Glucose, Urine (Dipstick) Negative (Negative); Ketone, Urine 15 mg/dL (Negative); Nitrite Negative (Negative); Protein, Urine (Dipstick) 100 mg/dL (Neg-Trace)
[2016-11-14 16:06] LABS: Bilirubin Negative (Negative)
[2016-11-14 16:56] LABS: Bacteria/HPF 2+ HPF (None Seen); RBC/HPF 0-3 HPF (0-3); Squamous Epithelial 0-3 HPF (0-3); WBC/HPF 21-50 HPF (0-3)
== END 2016-11-14 13:07 | disposition home or self-care (01) ==
LOC: NAV LAB 13:06
PROVIDERS: ATTEND Family Medicine
DX: N39.498 Other specified urinary incontinence (principal)
CPT/HCPCS: 81003; 81015

== ENCOUNTER 2017-02-11 21:44 | Inpatient (IN) | payer MEDICARE ==
--- NOTE | 2017-02-11 22:39 | RAD ---
AP VIEW OF THE CHEST: 02/11/17 INDICATION: History of a renal stent placement today. Now with shortness of breath. COMPARISON: Prior exam dated 10/22/14. IMPRESSION: There is stable cardiomegaly and multilead pacemaker. No confluent air space opacity or pleural effu sions evident. No pulmonary vascular congestion is evident. Chronic osseous changes are stable. POS: [facility]
[2017-02-11 23:13] LABS: Bilirubin Negative (Negative); Blood, Urine Trace (Negative); Clarity Clear (Clear); Glucose, Urine (Dipstick) 250 mg/dL (Negative); Leukocyte Negative (Negative); Nitrite Negative (Negative); Protein, Urine (Dipstick) 30 mg/dL (Neg-Trace)
[2017-02-11 23:28] LABS: #Lymphocytes 0.8 thou/uL (1.20-3.40); #Monocytes 0.6 thou/uL (0.11-0.59); #Neutrophils 7.9 thou/uL (1.40-6.50); %Basophils 0.3 % (0.0-1.0); %Eosinophils 0.2 % (0.0-10.0); %Lymphocytes 8.6 % (21.0-51.0); %Monocytes 6.1 % (0.0-10.0); %Neutrophils 84.9 % (42.0-75.0); Hemoglobin 15.9 g/dL (14.0-18.0); Mean Corpuscular HGB CONC 35.4 g/dL (32.0-36.0); Mean Corpuscular Hemoglobin 32.1 pg (27.0-31.0); Mean Corpuscular Volume 90.9 fl (80.0-94.0); Mean Platelet Volume 9.6 fL (7.4-10.4); PLT Morphology Comment Appears Decreased; Platelet Count 108 thou/uL (130-400); RBC Distribution Width 12.9 % (11.5-14.5); RBC Morphology Normal; Red Blood Cell (RBC) Count 4.95 mill/uL (4.70-6.10); White Blood Cell (WBC) Count 9.4 thou/uL (4.8-10.8)
[2017-02-11 23:29] LABS: ALT (SGPT) 17 U/L (0-55); AST (SGOT) 22 U/L (5-34); Albumin 4.2 g/dL (3.4-4.8); Alkaline Phosphatase 68 U/L (40-150); Anion Gap 18 mmol/L (10-20); BUN (Urea Nitrogen) 11 mg/dL (8.4-25.7); Bilirubin, Total 1.8 mg/dL (0.2-1.2); Calc. Creatinine Clearance 0 mL/min (70-130); Calcium 9.2 mg/dL (7.8-10.44); Carbon Dioxide 24 mmol/L (23-31); Chloride 102 mmol/L (98-107); Estimated GFR-MDRD 84; Globulin 3.1 g/dL (2.4-3.5); Glucose 162 mg/dL (83-110); Potassium 3.4 mmol/L (3.5-5.1); Protein, Total 7.3 g/dL (5.8-8.1); Sodium 141 mmol/L (136-145)
[2017-02-11 23:32] LABS: Bacteria/HPF None Seen HPF (None Seen); RBC/HPF 0-3 HPF (0-3); Squamous Epithelial None Seen HPF (0-3); WBC/HPF 0-3 HPF (0-3)
[2017-02-11 23:33] LABS: CKMB 3.8 ng/mL (0-6.6); Troponin I 0.033 ng/mL (< 0.028)
[2017-02-12] MEDS ORDERED: Cefepime 2 GM VIAL ONE (01:32)
[2017-02-12] MEDS ORDERED: Sodium Chloride 0.9% 100 ML ONE ×2 (01:32→01:37)
[2017-02-12] MEDS ORDERED: Sodium Chloride 0.9% 0 ML ONE (01:36)
[2017-02-12] MEDS ORDERED: Simvastatin 20 MG TAB ONE (01:36)
[2017-02-12] MEDS ORDERED: Azithromycin 500 MG VIAL ONE (01:36)
[2017-02-12] MEDS ORDERED: Lisinopril 20 MG TAB ONE (01:36)
[2017-02-12] MEDS ORDERED: Sodium Chloride 0.9% 250 ML 250 ML ONE (01:40)
[2017-02-12] MEDS ORDERED: Carvedilol 25 MG TAB PO SCH (01:45)
[2017-02-12] MEDS ORDERED: Gabapentin 300 MG CAP PO SCH (01:45)
[2017-02-12] MEDS ORDERED: Ondansetron HCl/PF 4 MG/2 ML Vial IVP PRN (03:37)
[2017-02-12] MEDS ORDERED: Ondansetron ODT 4 MG TAB SL PRN (03:37)
[2017-02-12] MEDS ORDERED: Acetaminophen 325 MG TAB PO PRN ×2 (03:37→18:04)
--- NOTE | 2017-02-12 08:09 | CT ---
PRELIMINARY REPORT/[facility]/EMERGENCY AFTER HOURS PROCEDURE: EXAM: CT Angiography Chest With Intravenous Contrast CLINICAL HISTORY: 81 years old, male; Signs and symptoms; Dyspnea; Prior surgery; Surgery date: 6+ months; Surgery typ e: Pacemaker; Patient HX: Past medical history includes cardiac history, coronary artery disease, tr eated with stent placement, , past medical history includes cardiac history, coronary artery disease , congestive heart failure, arrhythmia, atrial fibrillation, treated with a pacemaker, 8 years ago TECHNIQUE: Axial computed tomographic angiography images of the chest with intravenous contrast using pulmonary embolism protocol. Coronal reformatted images were created and reviewed. CONTRAST: 96 mL of ISOVUE 370 administered intravenously. COMPARISON: No relevant prior studies available. FINDINGS: Pulmonary arteries: No pulmonary embolism. Aorta: Atherosclerotic disease of the thoracic aorta, without aneurysm or dissection. Lungs: Patchy groundglass opacities within the anterior aspect of the superior segment right lower l obe and within the anterior basal segment of the right lower lobe, likely bronchopneumonia. Small le ft pleural effusion associated posterior atelectasis. Pleural space: See above. Heart: Moderate four-chamber cardiac enlargement. Extensive atherosclerotic calcification of the cor onary arteries. Mediastinum: Small-sized hiatal hernia. Bones/joints: Multilevel thoracic spine degenerative changes. No acute fracture. No dislocation. Soft tissues: Normal. Lymph nodes: Calcified left hilar lymph nodes, compatible with prior granulomatous disease. 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 Tubes, lines and devices: Left subclavian transvenous pacemaker in place. IMPRESSION: 1. No pulmonary embolism. 2. Patchy groundglass opacities within the anterior aspect of the superior segment right lower lobe and within the anterior basal segment of the right lower lobe, likely bronchopneumonia. Recommend fo llowup. 3. Incidental/non-acute findings are described above. Thank you for allowing us to participate in the care of your patient. Dictated and Authenticated by: Prabhjot Koch MD 02/12/2017 1:02 AM Central Time ([place] \T\ [place]) FINAL REPORT CT PULMONARY ANGIO STUDY: Date: 02/11/17 TECHNIQUE: Multiple axial tomograms obtained through the chest with IV enhancement in arterial phase following pulmonary angio protocol with multiplanar reconstruction and 3D postprocessing. FINDINGS: No evidence of pulmonary embolus. Patchy alveolar opacity in the right lower lobe is consistent with inflammatory pneumonia. I am in agreement with the preliminary report issued by [facility]. POS: [facility]
[2017-02-12] MEDS ORDERED: Iopamidol 370 76% 100 ML VIAL ONE (09:00)
[2017-02-12] MEDS ORDERED: cloNIDine HCl 0.1 MG TAB PO PRN (17:51)
[2017-02-12] MEDS ORDERED: Milk Of Magnesia 30 ML UDCUP PO PRN (18:04)
[2017-02-12] MEDS ORDERED: Loperamide HCl 2 MG CAP PO PRN (18:04)
[2017-02-12] MEDS ORDERED: Ondansetron ODT 4 MG TAB PO PRN (18:04)
[2017-02-12] MEDS: Azithromycin 500 MG in Sodium Chloride 0.9% 250 ML 250 ML IVPB SCH (18:30)
[2017-02-12] MEDS: cefTRIAXone\\ROCEPHIN 1 GM in Sodium Chloride 0.9% 100 ML IVPB SCH (20:57)
[2017-02-12] MEDS: Gabapentin 300 MG CAP PO SCH (20:57)
[2017-02-12] MEDS: Aspirin 81 mg Enteric Coated Tablet PO SCH (20:57)
[2017-02-12] MEDS: Pravastatin Sodium 20 MG TAB PO SCH (20:57)
[2017-02-12] MEDS: AcetaZOLAMIDE 250 MG TAB PO SCH (20:58)
[2017-02-12] MEDS: Guaifenesin DM 100-10/5 ML UDCUP PO PRN (20:58)
[2017-02-12] MEDS: Tamsulosin HCl 0.4 MG CAP PO SCH (20:58)
[2017-02-12] MEDS: Carvedilol 25 MG TAB PO SCH (20:58)
[2017-02-12] MEDS: Polyethylene Glycol 3350 17 GM Packet PO SCH ×2 (20:59→21:11)
[2017-02-12] MEDS: Lisinopril 20 MG TAB PO SCH (20:59)
--- NOTE | 2017-02-12 23:48 | HP ---
DATE OF ADMISSION: 02/12/2017 HISTORY OF PRESENT ILLNESS: The patient is a very pleasant 81-year-old white male that has dementia and is very confused. He apparently has had multiple admissions in the recent past. He was seen either today or yesterday by Dr. Kasper and had a left renal artery stent placed. He does not remember exactly what day and he does not remember any of his medications. I did pull my office visit from November which was the last time he saw him and the last hospitalization from [facility], which was January 01 and the discharge summary from that and the patient had also some notes from Dr. Kasper from a renal stent yesterday or the day before about changes in his medications. Nonetheless , the patient came in and was seen in the ER and found to have a right lower lobe pneumonia. He was admitted to the hospital for swing bed, but because of his significant medication changes, his blood pressure which has been very labile right lower lobe pneumonia and because of his inability to take his medications faithfully because of his significant dementia, it was decided that we needed to admit him to the hospital for at least a good 3 days of IV antibiotics and follow his blood pressure closely. CURRENT MEDICATIONS: The patient presently is taking the following medications: 1. Plavix 75 mg daily. 2. Aspirin 81 mg daily. 3. Pradaxa 75 mg twice a day per Dr. Kasper which starts tomorrow. 4. Lisinopril 20 mg twice a day. 5. Carvedilol 25 mg twice daily. 6. Amlodipine 5 mg which is an increase from his 2.5 mg 1 pill once daily. 7. Spironolactone 25 mg once a day in the morning. 8. Potassium 10 mEq for which he typically takes 20 mEq half a pill, but that again is once a day. 9. Pravastatin 20 mg at bedtime which is a change from his simvastatin. 10. Flomax 0.4 mg daily. 11. Gabapentin 300 mg once a day in the evening. 12. Zoloft 50 mg each morning. 13. Diamox 250 mg at bedtime per Dr. Recinos, his neurologist. 14. MiraLax 17 grams once a day. ALLERGIES: The patient has no known drug allergies. PAST MEDICAL HISTORY: 1. High blood pressure. 2. Renal artery stenosis with a new stent. 3. Prostate cancer followed by Dr. Muller. 4. Hypercholesterolemia. 5. Coronary disease with stents followed by Dr. Kasper. 6. Normal pressure hydrocephalus, followed by Dr. Whitney and Dr. Recinos. 7. Renal artery stenosis which a stent was placed by Dr. Kasper and a couple days ago. PAST SURGICAL HISTORY: 1. Cardiac stent by Dr. Kasper. 2. Cardiac pacemaker by Dr. Kasper. 3. Back surgery. 4. Prostate surgery and radiation. 5. Renal artery stent just a couple days ago. FAMILY HISTORY: Reveals the patient's father at age 72 of unknown etiology. The patient's mother at age 30, some type of infection from a spider. SOCIAL HISTORY: The patient is a former smoker, but does not remember how much he smoked, from when he smoked. He denies ETOH and drug usage. ALLERGIES: He has no known allergies. REVIEW OF SYSTEMS: This is a well-developed white male that states he remembers coughing a lot. He thinks he had some fevers not sure if he had chills or night sweats. He states he has not had much of appetite. He has coughed so much. He has a headache. He complains of extreme weakness and fatigue. He does not remember what medicines he is on. He just knows that his niece does keep track of that and put some type of container which most of the time he remembers to take. Denies any vision changes, denies any hearing changes, although he is hard of hearing. He states he has had a cough off and on for several days, but did not have much. He states he is coughing up stuff. He does not remember that it was yellow or green. He does not remember having any chest pain, does not remember his heart pounding. He does remember having a stent, but not sure exactly if it is in his heart or in his kidneys and we did evaluate that and it was in his left renal artery. The patient denies any nausea, vomiting, or bloody stools or black tarry stools. He does not think he gets up at night, but he does have a history of incontinence in the past. He states all of his joints hurt most of the time. He is not sure which one hurts worse. He denies any dizziness, just feels weak all the time. PHYSICAL EXAMINATION: GENERAL: This is a well-developed, well-nourished, slightly obese white male in no apparent distress at this time. HEENT: Reveals normocephalic, nontraumatic cranium. The pupils are equally round, reactive to light and accommodation. Extraocular movements are intact. Nose and throat are slightly dry. NECK: Supple without masses, nodes, or bruits. No jugular venous distention is noted. No carotid bruits are heard. LUNGS: Chest reveals a constant cough with some rattles in the right base and occasional inspiratory wheeze. The rales seem to clear with coughing. HEART: Reveals a regular rate and rhythm without murmurs, gallops, or rubs. No S3 or S4 is noted. ABDOMEN: Obese, soft, nontender without organomegaly. Normal bowel sounds are noted. No rebound or guarding is noted. GENITOURINARY: Deferred. EXTREMITIES: Reveal good strength bilateral and symmetrical. Good reflexes and trace edema. NEUROLOGIC: The patient is intact. His recent memory is very poor. His remote memory is also poor. He is followed by Dr. Recinos for normal pressure hydrocephalus. LABORATORY DATA: CT scan did reveal a right lower lobe pneumonia. IMPRESSION: 1. The patient also was recently admitted to [facility] with transient ischemic disease, hypertensive urgency, isolated troponin, chronic kidney disease stage 2, and coronary artery disease. 2. Systemic hypertension and I agreed to control in the past, but the patient did have a left renal artery stent just placed and so we will watch his blood pressure very closely. 3. Normal pressure hydrocephalus. 4. Prostate cancer. 5. Coronary artery disease with stenting. 6. Sick sinus syndrome with history of permanent pacemaker. 7. Renal artery Stenosis post stenting. 8. BPH 9. Hypercholesterolemia 10. Anxiety / Depressive disorder PLAN: 1. The patient is admitted. We will start him on Rocephin and azithromycin. 2. We will give him DuoNeb q.6 hours p.r.n. 3. We will see if we can slow down his cough just a little bit with some Robitussin-DM. 4. We have gone over his extensively and I have actually called his niece and gone over the medicines with her and have looked at Dr. Kasper's notes and the previous admission and discharge in my notes from the office and have come up with a game plan. I spent more than an hour and 15 minutes going over this patient to make sure he is on the right medications and a complete history and physical. JACQUELYN
[2017-02-13 05:11] LABS: #Lymphocytes 1.2 thou/uL (1.20-3.40); #Monocytes 0.8 thou/uL (0.11-0.59); #Neutrophils 4.9 thou/uL (1.40-6.50); %Basophils 0.2 % (0.0-1.0); %Eosinophils 0.5 % (0.0-10.0); %Lymphocytes 17.6 % (21.0-51.0); %Monocytes 11.2 % (0.0-10.0); %Neutrophils 70.4 % (42.0-75.0); Hemoglobin 14.3 g/dL (14.0-18.0); Mean Corpuscular HGB CONC 34.4 g/dL (32.0-36.0); Mean Corpuscular Hemoglobin 31.7 pg (27.0-31.0); Mean Platelet Volume 10.5 fL (7.4-10.4); PLT Morphology Comment Appears Adequate; Platelet Count 107 thou/uL (130-400); RBC Distribution Width 12.9 % (11.5-14.5); RBC Morphology Normal; Red Blood Cell (RBC) Count 4.52 mill/uL (4.70-6.10)
[2017-02-13 05:12] LABS: MDiff Complete? YES; Manual Diff?? NO
[2017-02-13 05:28] LABS: Albumin 3.6 g/dL (3.4-4.8); Anion Gap 14 mmol/L (10-20); BUN (Urea Nitrogen) 19 mg/dL (8.4-25.7); BUN/Creatinine Ratio 16.24; Calc. Creatinine Clearance 69 mL/min (70-130); Calcium 9.1 mg/dL (7.8-10.44); Carbon Dioxide 28 mmol/L (23-31); Chloride 106 mmol/L (98-107); Estimated GFR-MDRD 60; Glucose 99 mg/dL (83-110); Phosphorus 3.3 mg/dL (2.3-4.7); Potassium 3.8 mmol/L (3.5-5.1); Sodium 144 mmol/L (136-145)
[2017-02-13] MEDS: Spironolactone 25 MG TAB PO SCH (09:18)
[2017-02-13] MEDS: Potassium Chloride 10 MEQ TAB PO SCH (09:20)
[2017-02-13] MEDS: Carvedilol 25 MG TAB PO SCH ×2 (09:20→20:26)
[2017-02-13] MEDS: Lisinopril 20 MG TAB PO SCH ×2 (09:21→20:26)
[2017-02-13] MEDS: Clopidogrel Bisulfate 75 MG TAB PO SCH (09:21)
[2017-02-13] MEDS: Guaifenesin DM 100-10/5 ML UDCUP PO PRN ×2 (09:28→20:25)
--- NOTE | 2017-02-13 17:14 | PRG ---
DATE OF SERVICE: 02/13/2017 HISTORY OF PRESENT ILLNESS: Mr. Slater is a very pleasant 81-year-old white male who had a several day history of coughing and some fever and chills. He was seen in the emergency room yesterday and noted on CT scan to have a right lower lobe pneumonia. He was admitted to the hospital and given s ome Rocephin and azithromycin. Today, he states he feels a little better, he is still coughing quit e a bit. He is still not able to cough up by anything. He is on all of his medications. He has no complaints, states he feels still pretty weak, but he is definitely feeling a little bit better and is not having as much fever and chills as he did at home. PHYSICAL EXAMINATION: VITAL SIGNS: Today reveal blood pressure is still elevated at 186/90, pulse is 55-60, respirations 18-20, O2 sat 97% states he still has trouble catching his breath at times it comes and goes. His t emperature this morning was 97.3. LABORATORY DATA: This morning reveals a white count is down to 7000, hemoglobin is 14.3, hematocrit 41.6, platelet count is 107,000. This morning, his neutrophils are down to 4.9, lymphocytes 1.2, m onocytes. His neutrophils are down to 70.4, which is back in the normal range, lymphocytes [id number], w hich is still improving from 8600. His monocytes are 11.2. His electrolytes reveal sodium 144, potassium back to normal at 3.8, chloride 106, carbon dioxide 28 , BUN 19, creatinine 1.17. GFR 60%. PHYSICAL EXAMINATION: GENERAL: This is a well-developed, well-nourished, slightly obese white male in no apparent distres s at this time. He states his coughing is better. He states he is able to catch his breath better, still has episodes where he still has to try to breath a little harder than usual. He states he is not coughing up anything. HEENT: Reveals normocephalic, nontraumatic cranium. Pupils are equally round and reactive. Extrao cular movements intact. Nose and throat are slightly dry. NECK: Supple, without masses, nodes or bruits. No jugular venous distention is noted. LUNGS: Chest is clear with still a constant type cough, but much improved than yesterday. He has n o rales or rhonchi, still has some decreased breath sounds in the right base slightly and rare wheez e today. HEART: Reveals a regular rate and rhythm without murmurs, gallops or rubs. ABDOMEN: Obese, soft, nontender, without organomegaly. Normal bowel sounds are noted. No rebound or guarding is noted. : Deferred. EXTREMITIES: Reveal no clubbing, cyanosis or edema. ASSESSMENT: 1. Right lower lobe pneumonia. 2. Hypertension, still elevated, but the patient just recently got a left renal artery stent about 2 or 3 days ago. 3. Normal pressure hydrocephalus. 4. Coronary artery disease with stenting. 5. Sick sinus syndrome with permanent pacemaker. 6. Benign prostatic hypertrophy. 7. Hypercholesterolemia. 8. Anxiety depressive disorder. 9. Chronic kidney disease stage 2. PLAN: 1. Continue present IV antibiotics of Rocephin and azithromycin. 2. Continue DuoNebs q.6 h. p.r.n. 3. Cough is slightly better. Continue present treatment. 4. Encourage the patient to eat. 5. Encourage the patient to get out of bed. 6. Continue DVT and stress ulcer prophylaxis. 7. Continue decubitus precautions.
[2017-02-13] MEDS: Azithromycin 500 MG in Sodium Chloride 0.9% 250 ML 250 ML IVPB SCH (18:29)
[2017-02-13] MEDS: cefTRIAXone\\ROCEPHIN 1 GM in Sodium Chloride 0.9% 100 ML IVPB SCH (20:25)
[2017-02-13] MEDS: Gabapentin 300 MG CAP PO SCH (20:25)
[2017-02-13] MEDS: Aspirin 81 mg Enteric Coated Tablet PO SCH (20:25)
[2017-02-13] MEDS: AcetaZOLAMIDE 250 MG TAB PO SCH (20:26)
[2017-02-13] MEDS: Pravastatin Sodium 20 MG TAB PO SCH (20:26)
[2017-02-13] MEDS: Tamsulosin HCl 0.4 MG CAP PO SCH (20:26)
[2017-02-13] MEDS: Polyethylene Glycol 3350 17 GM Packet PO SCH (20:27)
--- NOTE | 2017-02-14 07:04 | PRG ---
DATE OF SERVICE: 02/14/2017 HISTORY OF PRESENT ILLNESS: Mr. Slater is a very pleasant 81-year-old white male that has a severa l day history of cough, fever and chills. He was seen in the emergency room and noted on CT scan to have a right lower lobe pneumonia. He was admitted to the hospital and given Rocephin and azithrom ycin. The patient states he feels better. He did not sleep as well, his coughing is significantly better. He is just coughing just a little bit now. He is able to get up and walk around and he has no com plaints. His vital signs are all back to normal. He states he feels weak, but he is much improved. VITAL SIGNS: Vital signs today reveal blood pressure is slightly elevated last night of 186/90, bef ore that it was 131/63. The patient has recently had renal artery stents and he is on multiple medications. We will continu e to follow that closely. PHYSICAL EXAMINATION: GENERAL: This is a well-developed, well-nourished, very pleasant, obese white male in no apparent d istress at this time. HEENT: Reveals normocephalic, nontraumatic cranium. Pupils are equally round and reactive. Extrao cular movements intact. Nose and throat are slightly dry. NECK: Supple, without masses, nodes or bruits. No jugular venous distention is noted again today, LUNGS: Chest is clear, no consolidation is noted in the right lower lung. The patient did not have any coughing episodes while I was in the room with him this morning. He has no rales, no rhonchi, and no wheezes. His breath sounds are bilateral and equally good. He has no decreased breath sound s on the right. He has no wheezes today. CARDIOVASCULAR: Heart reveals a regular rate and rhythm without murmurs, gallops or rubs. ABDOMEN: Obese, soft, nontender, without organomegaly. Normal bowel sounds are noted. No rebound or guarding is noted. : Deferred. EXTREMITIES: Reveal no clubbing, cyanosis or edema. IMPRESSION: 1. Right lower lobe pneumonia, much improved. 2. Hypertension, which is labile up and down right now. The patient did get a left renal artery st ent several days ago. 3. Normal pressure hydrocephalus. 4. Coronary artery disease with stenting. 5. Sick sinus syndrome with prior pacemaker. 6. Benign prostatic hypertrophy. 7. Hypercholesterolemia. 8. Anxiety depressive disorder. 9. Chronic kidney disease stage 2. PLAN: 1. Continue present IV antibiotics, Rocephin and azithromycin. 2. The patient is much improved, he may be able to be discharged tomorrow. 3. The patient has not been using his DuoNebs which are ordered q.6 h. p.r.n. 4. Cough is much improved. 5. Encourage the patient continue to eat. 6. Encourage the patient to stay out of bed. 7. Continue DVT and stress ulcer prophylaxis. 8. Continue decubitus precautions. 9. We will write a prescription for Omnicef twice a day. If the patient goes home he will have velasquez t ready for him since this is a holiday weekend.
[2017-02-14] MEDS: Clopidogrel Bisulfate 75 MG TAB PO SCH (08:49)
[2017-02-14] MEDS: Spironolactone 25 MG TAB PO SCH (08:49)
[2017-02-14] MEDS: Potassium Chloride 10 MEQ TAB PO SCH (08:50)
[2017-02-14] MEDS: Lisinopril 20 MG TAB PO SCH ×2 (08:51→20:41)
[2017-02-14] MEDS: Carvedilol 25 MG TAB PO SCH ×2 (08:51→20:42)
[2017-02-14 11:42] VITALS: BMI 30.2
[2017-02-14] MEDS: Azithromycin 500 MG in Sodium Chloride 0.9% 250 ML 250 ML IVPB SCH (18:38)
[2017-02-14] MEDS: cefTRIAXone\\ROCEPHIN 1 GM in Sodium Chloride 0.9% 100 ML IVPB SCH (19:51)
[2017-02-14] MEDS: Tamsulosin HCl 0.4 MG CAP PO SCH (20:41)
[2017-02-14] MEDS: Aspirin 81 mg Enteric Coated Tablet PO SCH (20:41)
[2017-02-14] MEDS: AcetaZOLAMIDE 250 MG TAB PO SCH (20:42)
[2017-02-14] MEDS: Polyethylene Glycol 3350 17 GM Packet PO SCH (20:42)
[2017-02-14] MEDS: Gabapentin 300 MG CAP PO SCH (20:42)
[2017-02-14] MEDS: Pravastatin Sodium 20 MG TAB PO SCH (20:45)
[2017-02-14 22:17] VITALS: TEMP 98.3
[2017-02-15] MEDS: Potassium Chloride 10 MEQ TAB PO SCH (09:24)
[2017-02-15] MEDS: Spironolactone 25 MG TAB PO SCH (09:25)
[2017-02-15] MEDS: Carvedilol 25 MG TAB PO SCH (09:25)
[2017-02-15] MEDS: Clopidogrel Bisulfate 75 MG TAB PO SCH (09:25)
[2017-02-15] MEDS: Lisinopril 20 MG TAB PO SCH (09:26)
[2017-02-15 09:27] VITALS: BP 167/79
--- NOTE | 2017-02-15 17:54 | DIS ---
DATE OF ADMISSION: 02/12/2017 DATE OF DISCHARGE: 02/15/2017 Mr. Slater is a very pleasant 81-year-old white male that came to the emergency room very confused and was found to have a right lower lobe pneumonia. He talked about having significant cough for 2-3 days. He also had fever and some chills. He was admitted to the hospital and started on Rocephin and azithromycin. He is actually progressed fairly well. He has no fever or chills today. He states this has almost gone and his lungs were much improved and his dementia and confusion has improved. He is ready for discharge today. OBJECTIVE: Vital signs today reveal blood pressure is 139/67, pulse 60, respirations 20, O2 sat 98.3. PHYSICAL EXAMINATION: GENERAL: This is a well-developed, well-nourished, very pleasant white male in no apparent distress at this time. HEENT: Reveals normocephalic, nontraumatic cranium. The pupils were equally round and reactive. Extraocular movements are intact. Nose and throat are slightly dry, but clear. NECK: Supple, without masses, nodes or bruits. CHEST: Clear to auscultation. Patient has rare cough at this time no consolidation or congestion or decreased breath sounds in the right lower lobe were noted. No rales, rhonchi or wheezes are noted. Rare cough. HEART: Reveals a regular rate and rhythm without murmurs, gallops or rubs. ABDOMEN: Obese, soft, nontender, without organomegaly, normal bowel sounds are noted. No rebound or guarding is noted. GENITOURINARY: Deferred. EXTREMITIES: Reveals no clubbing, cyanosis or edema. IMPRESSION: 1. Right lower lobe pneumonia, much improved. 2. Recent admission to the hospital with transient ischemic attack. 3. Hypertension. 4. Chronic kidney disease stage 2. 5. Coronary artery disease. 6. Normal pressure hydrocephalus. 7. History of prostate cancer. 8. Sick sinus syndrome with history of permanent pacemaker. 9. Renal artery stenosis post-stenting 1 week. 10. Benign prostatic hypertrophy. 11. Hypercholesterolemia. 12. Anxiety depressive disorder. DISCHARGE MEDICATIONS: Includes the followin. Omnicef 300 mg twice a day for 10 days. 2. Plavix 75 mg daily. 3. Aspirin 81 mg daily. 4. Pradaxa 75 mg twice a day and then after several weeks Dr. Kasper. wanted him to increase that 150 mg twice daily. 5. Lisinopril 20 mg twice daily. 6. Carvedilol 25 mg twice daily. 7. Amlodipine 5 mg once a day which is an increase from his 2.5 mg once daily. 8. Spironolactone 25 mg once every morning. 9. Potassium 10 mEq each morning. 10. Pravastatin 20 mg at bedtime. 11. Flomax 0.4 mg daily. 12. Gabapentin 300 mg once a day in the evening. 13. Zoloft 50 mg each morning. 14. Diamox 250 mg at bedtime per Dr. Recinos his neurologist. 15. MiraLax 17 grams once a day. PLAN: 1. The patient to be discharged today. 2. The patient will continue on Omnicef 300 mg twice a day for a full 10 days. 3. The patient will see me in about 2 weeks after he finishes his Omnicef. 4. Continue to make sure that his niece, Ester Leos, gets all those medicines correctly, which he has been putting on his medications and I discussed this at length with her. 5. I spent more than 60 minutes going over the medications and discharging this patient. [facility]ITAL[facility]
== END 2017-02-15 11:09 | disposition home or self-care (01) | DRG 194 ==
LOC: NAV ERS 21:44 → NAV ACUTE 02-12 02:21 → OBSVTOIN 02-12 18:04
PROVIDERS: ADMIT Family Medicine; ATTEND Family Medicine
DX: J18.9 Pneumonia, unspecified organism (principal); I13.0 Hypertensive heart and chronic kidney disease with heart failure and stage 1 through stage 4 chronic kidney disease, or unspecified chronic kidney disease; G91.2 (Idiopathic) normal pressure hydrocephalus; F03.90 Unspecified dementia, unspecified severity, without behavioral disturbance, psychotic disturbance, mood disturbance, and anxiety; I50.9 Heart failure, unspecified; N18.2 Chronic kidney disease, stage 2 (mild); I25.10 Atherosclerotic heart disease of native coronary artery without angina pectoris; I48.91 Unspecified atrial fibrillation; Z85.46 Personal history of malignant neoplasm of prostate; Z86.73 Personal history of transient ischemic attack (TIA), and cerebral infarction without residual deficits; Z95.0 Presence of cardiac pacemaker; N40.0 Benign prostatic hyperplasia without lower urinary tract symptoms; E78.00 Pure hypercholesterolemia, unspecified; F41.8 Other specified anxiety disorders; Z95.828 Presence of other vascular implants and grafts; Z79.02 Long term (current) use of antithrombotics/antiplatelets; Z79.82 Long term (current) use of aspirin; Z87.891 Personal history of nicotine dependence; Z95.5 Presence of coronary angioplasty implant and graft
CPT/HCPCS: 36415; 71010; 71275; 80053; 80069; 81003; 81015; 82553; 83880; 84484; 85025; 87040; 93005; 96365; 96367; A4216; G0378; J0456; J0692; J0696; J7050

== ENCOUNTER 2017-04-21 15:04 | Outpatient (CLI) | payer MEDICARE ==
[2017-04-21 15:50] LABS: INR-International Normal Ratio 1.4; Prothrombin Time 17.4 SEC (12.0-14.7)
[2017-04-21 15:51] LABS: PTT 71.1 SEC (22.9-36.1)
[2017-04-21 20:38] LABS: #Lymphocytes 1.4 thou/uL (1.20-3.40); #Monocytes 0.5 thou/uL (0.11-0.59); #Neutrophils 3.8 thou/uL (1.40-6.50); %Basophils 0.5 % (0.0-1.0); %Eosinophils 0.7 % (0.0-10.0); %Lymphocytes 24.9 % (21.0-51.0); %Monocytes 7.8 % (0.0-10.0); %Neutrophils 66.1 % (42.0-75.0); Hemoglobin 16.1 g/dL (14.0-18.0); Mean Corpuscular HGB CONC 32.9 g/dL (32.0-36.0); Mean Corpuscular Hemoglobin 30.8 pg (27.0-31.0); Mean Corpuscular Volume 93.7 fl (80.0-94.0); Mean Platelet Volume 9.6 fL (7.4-10.4); Platelet Count 115 thou/uL (130-400); Red Blood Cell (RBC) Count 5.22 mill/uL (4.70-6.10); White Blood Cell (WBC) Count 5.8 thou/uL (4.8-10.8)
== END 2017-04-21 15:05 | disposition home or self-care (01) ==
LOC: NAVSJIPCSP 15:04
PROVIDERS: ATTEND Internal Medicine
DX: D69.2 Other nonthrombocytopenic purpura (principal)
CPT/HCPCS: 36415; 85025; 85610; 85730

== ENCOUNTER 2017-08-01 10:27 | Emergency (ER) | payer MEDICARE ==
[2017-08-01 11:46] LABS: #Eosinphils 0.1 thou/uL (0.0-0.7); #Lymphocytes 1.1 thou/uL (1.20-3.40); #Monocytes 0.6 thou/uL (0.11-0.59); #Neutrophils 3.9 thou/uL (1.40-6.50); %Basophils 0.5 % (0.0-1.0); %Lymphocytes 18.8 % (21.0-51.0); %Monocytes 10.8 % (0.0-10.0); Hemoglobin 14.4 g/dL (14.0-18.0); Mean Corpuscular Hemoglobin 30.6 pg (27.0-31.0); Mean Corpuscular Volume 92.5 fl (80.0-94.0); Mean Platelet Volume 10.2 fL (7.4-10.4); Platelet Count 92 thou/uL (130-400); RBC Distribution Width 12.8 % (11.5-14.5); White Blood Cell (WBC) Count 5.7 thou/uL (4.8-10.8)
[2017-08-01 11:50] LABS: ALT (SGPT) 17 U/L (8-55); AST (SGOT) 21 U/L (5-34); Albumin 4.3 g/dL (3.4-4.8); Alkaline Phosphatase 60 U/L (40-150); Anion Gap 12 mmol/L (10-20); BUN (Urea Nitrogen) 10 mg/dL (8.4-25.7); Bilirubin, Total 1.6 mg/dL (0.2-1.2); Calc. Creatinine Clearance 0 mL/min (70-130); Calcium 9.4 mg/dL (7.8-10.44); Carbon Dioxide 27 mmol/L (23-31); Chloride 101 mmol/L (98-107); Estimated GFR-MDRD 67; Globulin 3.1 g/dL (2.4-3.5); Glucose 102 mg/dL (83-110); Potassium 3.2 mmol/L (3.5-5.1); Protein, Total 7.4 g/dL (5.8-8.1); Sodium 137 mmol/L (136-145)
[2017-08-01] MEDS ORDERED: methylPREDNISolone Sod Succ/PF 125 MG/2 ML VIAL ONE (11:57)
[2017-08-01] MEDS ORDERED: Sodium Chloride 0.9% 100 ML ONE (11:57)
[2017-08-01] MEDS ORDERED: cefTRIAXone\\ROCEPHIN 1 GM VIAL ONE (11:57)
[2017-08-01] MEDS ORDERED: Potassium Chloride 20 MEQ TAB ONE (12:03)
--- NOTE | 2017-08-01 12:26 | RAD ---
CHEST 2 VIEWS: Date: 08/01/17 HISTORY: Dyspnea. FINDINGS: Heart size is slightly enlarged. There is a pacemaker present. The lungs are clear of any infiltrati ve process. There are arthritic changes of the spine. IMPRESSION: Mild cardiomegaly. POS: [facility]
== END 2017-08-01 12:50 | disposition home or self-care (01) ==
LOC: NAV ERS 10:27
DX: J18.9 Pneumonia, unspecified organism (principal); J45.909 Unspecified asthma, uncomplicated; I25.10 Atherosclerotic heart disease of native coronary artery without angina pectoris; I48.91 Unspecified atrial fibrillation; E78.5 Hyperlipidemia, unspecified; I11.0 Hypertensive heart disease with heart failure; I50.9 Heart failure, unspecified; Z87.891 Personal history of nicotine dependence; Z79.82 Long term (current) use of aspirin; Z79.899 Other long term (current) drug therapy
CPT/HCPCS: 71020; 80053; 85025; 87040; 87149; 94640; 96365; 96375; J0696; J2930; J7050; J7620

== ENCOUNTER 2017-08-08 12:47 | Emergency (ER) | payer MEDICARE ==
[2017-08-08] MEDS ORDERED: predniSONE 20 MG TAB ONE (13:30)
== END 2017-08-08 13:53 | disposition home or self-care (01) ==
LOC: NAV ERS 12:47
DX: J18.9 Pneumonia, unspecified organism (principal); J40 Bronchitis, not specified as acute or chronic; I25.10 Atherosclerotic heart disease of native coronary artery without angina pectoris; I49.9 Cardiac arrhythmia, unspecified; I48.91 Unspecified atrial fibrillation; E78.5 Hyperlipidemia, unspecified; I10 Essential (primary) hypertension; Z87.891 Personal history of nicotine dependence; Z79.82 Long term (current) use of aspirin; Z79.899 Other long term (current) drug therapy
CPT/HCPCS: 94640; J7506; J7620

== ENCOUNTER 2017-08-21 12:54 | Outpatient (CLI) | payer MEDICARE ==
--- NOTE | 2017-08-21 13:46 | RAD ---
FOUR VIEWS OF THE RIGHT KNEE: COMPARISON: None. HISTORY: Right knee pain. FINDINGS: Four views of the right knee show no evidence of acute fracture or dislocation. There is mild trico mpartmental osteophyte consistent with osteoarthritis. There may be a small knee effusion. Vascula r calcifications are seen posterior to the knee. IMPRESSION: Mild right knee osteoarthritis. POS: [facility]
--- NOTE | 2017-08-21 13:47 | RAD ---
FOUR VIEWS OF THE LEFT KNEE: COMPARISON: None. HISTORY: Left knee pain. FINDINGS: Four views of the left knee show no evidence of acute fracture or dislocation. There are moderate t ricompartmental osteophytes consistent with osteoarthritis. No knee effusion is seen. Vascular arnaud cifications are seen posterior to the knee. IMPRESSION: Moderate left knee osteoarthritis. POS: [facility]
== END 2017-08-21 12:55 | disposition home or self-care (01) ==
LOC: NAV RAD 12:54
PROVIDERS: ATTEND Orthopaedic Surgery
DX: M25.561 Pain in right knee (principal); M25.562 Pain in left knee; M17.0 Bilateral primary osteoarthritis of knee

== ENCOUNTER 2018-04-13 09:16 | Observation (INO) | payer MEDICARE ==
[2018-04-13 10:34] LABS: #Lymphocytes 1.1 thou/uL (1.20-3.40); #Monocytes 0.5 thou/uL (0.11-0.59); #Neutrophils 4.2 thou/uL (1.40-6.50); %Basophils 0.1 % (0.0-1.0); %Eosinophils 0.8 % (0.0-10.0); %Lymphocytes 18.2 % (21.0-51.0); %Monocytes 9.2 % (0.0-10.0); %Neutrophils 71.7 % (42.0-75.0); Hemoglobin 14.1 g/dL (14.0-18.0); Mean Corpuscular HGB CONC 34.5 g/dL (32.0-36.0); Mean Corpuscular Hemoglobin 31.4 pg (27.0-31.0); Mean Platelet Volume 10.1 fL (7.4-10.4); Platelet Count 107 thou/uL (130-400); RBC Distribution Width 11.8 % (11.5-14.5); White Blood Cell (WBC) Count 5.9 thou/uL (4.8-10.8)
[2018-04-13 10:35] LABS: Anion Gap 14 mmol/L (10-20); BUN (Urea Nitrogen) 23 mg/dL (8.4-25.7); CK (CPK) 51 U/L (30-200); Calc. Creatinine Clearance 0 mL/min (70-130); Calcium 9.8 mg/dL (7.8-10.44); Carbon Dioxide 27 mmol/L (23-31); Chloride 101 mmol/L (98-107); Estimated GFR-MDRD 55; Glucose 107 mg/dL (83-110); Potassium 4.1 mmol/L (3.5-5.1); Sodium 138 mmol/L (136-145)
[2018-04-13 10:38] LABS: CKMB 4.6 ng/mL (0-6.6); Troponin I 0.033 ng/mL (< 0.028)
[2018-04-13] MEDS ORDERED: Aspirin 325 MG TAB ONE (11:17)
--- NOTE | 2018-04-13 11:25 | RAD ---
CHEST 1 VIEW: Date: 04/13/18 HISTORY: Hypertension. COMPARISON: Chest radiograph dated 02/11/17. FINDINGS: Heart size is enlarged. No pneumothorax. No effusion. Cardiac device is similar. IMPRESSION: Mild cardiomegaly. POS: [facility]
[2018-04-13] MEDS ORDERED: Ondansetron HCl/PF 4 MG/2 ML Vial IVP PRN (12:42)
[2018-04-13 13:49] LABS: CKMB 4.4 ng/mL (0-6.6); Troponin I 0.029 ng/mL (< 0.028)
[2018-04-13 17:13] LABS: CKMB 4.5 ng/mL (0-6.6); Troponin I 0.032 ng/mL (< 0.028)
[2018-04-13] MEDS ORDERED: Ondansetron ODT 4 MG TAB PO PRN (19:56)
[2018-04-13] MEDS ORDERED: Milk Of Magnesia 30 ML UDCUP PO PRN (19:56)
[2018-04-13] MEDS ORDERED: Loperamide HCl 2 MG CAP PO PRN (19:56)
[2018-04-13] MEDS ORDERED: Acetaminophen 325 MG TAB PO PRN (19:56)
[2018-04-13] MEDS ORDERED: Carvedilol 25 MG TAB PO SCH (20:00)
[2018-04-13] MEDS ORDERED: Aspirin 81 mg Enteric Coated Tablet PO SCH (21:00)
[2018-04-13] MEDS ORDERED: Gabapentin 300 MG CAP PO SCH (21:00)
[2018-04-13] MEDS ORDERED: Pravastatin Sodium 20 MG TAB PO SCH (21:00)
[2018-04-13] MEDS ORDERED: Tamsulosin HCl 0.4 MG CAP PO SCH (21:00)
[2018-04-13] MEDS: Lisinopril 20 MG TAB PO SCH (21:31)
[2018-04-13] MEDS: Dabigatran 150 mg Capsule PO SCH (21:31)
--- NOTE | 2018-04-14 04:28 | HP ---
DATE OF ADMISSION: 04/14/2018 HISTORY OF PRESENT ILLNESS: Mr. Slater is a very pleasant 82-year-old white male that presented to the emergency room this morning after waking up feeling dizzy and somewhat confused. Denies any chest pain. He states his blood pressure a little higher than usual who took his blood pressure medicine, but he was concerned, so he came to the emergency room for evaluation. He was seen by Dr. Melendez in the emergency room, he was given some Zofran and had cardiac enzymes done which revealed an indeterminate troponin. With his history of congestive heart failure, CAD, stent placement, diastolic and systolic congestive heart failure and atrial fibrillation followed by Dr. Kasper with pacemaker it is felt that he needed to be admitted overnight for further observation. PAST MEDICAL HISTORY: Significant for followin. Diastolic and systolic congestive heart failure followed by Dr. Kasper. 2. History of atrial fibrillation. 3. Coronary artery disease with stents done by Dr. Kasper. 4. Sick sinus syndrome with pacemaker done by Dr. Kasper on chronic anticoagulation. 5. Hypertension. 6. History of left renal artery stenosis. 7. Chronic kidney disease, stage 3. 8. Normal pressure hydrocephalus, followed by Dr. Whitney and Dr. Recinos. 9. Hypercholesterolemia. 10. Skin cancer. 11. Prostate cancer followed by Dr. Muller in 2008 with external beam radiation. PAST SURGICAL HISTORY: 1. Cardiac pacemaker. 2. Back surgery. 3. Cardiac stents by Dr. Kasper. 4. Prostate surgery and radiation. FAMILY HISTORY: Reveals patient's father at age 72. Patient's mother at age 30 of some type of infected spider bite. SOCIAL HISTORY: Reveals patient does not smoke. Drinks occasional alcohol. Not sexually active or not use any drugs. Drinks caffeine. He is . He has no children. CURRENT MEDICATIONS: Presently on the following, 1. Carvedilol 25 mg once a day. 2. Lisinopril 20 mg twice daily. 3. Amlodipine 2.5 mg twice a day or 5 mg once a day. 4. Pravastatin 20 mg at bedtime. 5. Spironolactone 25 mg once a day. 6. Potassium chloride 20 mEq once daily. 7. Flomax 0.4 mg daily. 8. Gabapentin 300 mg at bedtime. 9. Plavix 75 mg once a day. 10. Aspirin 81 mg once a day. 11. Pradaxa 150 mg twice daily Patient is not presently taking his Diamox and not taking MiraLax and not taking sertraline. I am not sure that the patient is actually taking Plavix. It is not on his list of medicines to be taking on 04/13/2018. ALLERGIES: Patient has no known drug allergies. REVIEW OF SYSTEMS: Patient denies any fever, sweats, but he complains of weakness, fatigue, some dizziness this morning. 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 Denies any headaches or head injury that he can remember. Denies any change in his vision or his hearing. Denies any problems with runny nose, cough, cold, or congestion. Denies productive sputum changes, coughing up blood, or shortness of breath. Denies chest pain, claudication, orthopnea, dyspnea on exertion. Denies GI problems including hematochezia, hematemesis, melena, dysphagia, nausea, vomiting, diarrhea, constipation, black or bloody stools. Patient denies urgency, frequency, hematuria, dysuria, incontinence, or decreased stream. He does state he gets up several times at night prior to go urinate. Denies any joint pain, swelling, stiffness, muscle weakness. Denies any rashes. PHYSICAL EXAMINATION: GENERAL: This is a well-developed, well-nourished, very pleasant white male who states he feels much better at this time. HEENT: Reveals normocephalic, nontraumatic cranium. Pupils equal, round, and reactive. Extraocular movements intact. Nose and throat are slightly dry. NECK: Supple, without mass, nodes, or bruits. CHEST: Clear to auscultation. No rales, no rhonchi, no wheezes are heard. HEART: Reveals a 2/6 systolic ejection murmur, regular rate and rhythm is noted at this time. ABDOMEN: Soft, nontender without organomegaly. Normal bowel sounds are noted. No rebound or guarding is noted. : Deferred. EXTREMITIES: Reveal no clubbing, cyanosis, or edema today. NEUROLOGIC: Patient has no significant neurological deficits. ASSESSMENT: 1. Indeterminate troponin. 2. History of dizziness with some feeling terrible and feeling weak all over this morning. 3. Hypertension. 4. Hypercholesterolemia. 5. History of coronary artery disease. 6. Systolic and diastolic congestive heart failure followed by Dr. Kasper. 7. History of atrial fibrillation in the past. 8. Coronary artery disease with stents. 9. Sick sinus syndrome with pacemaker. 10. Chronic kidney disease, stage 3. 11. Normal pressure hydrocephalus followed by Dr. Whitney, Dr. Recinos, for which he is not taking his Diamox at this time. PLAN: 1. The patient admitted to the hospital for observation. 2. The patient is going to have serial cardiac enzymes. If those are completely normal, we will most likely release the patient in the morning. 3. Follow for signs and symp[toms of CHF 4. Monitor BP and heart rate for A fib MTDD
[2018-04-14] MEDS ORDERED: Potassium Chloride 20 MEQ TAB PO SCH (08:00)
[2018-04-14] MEDS ORDERED: Carvedilol 25 MG TAB PO SCH (08:00)
[2018-04-14] MEDS ORDERED: Potassium Chloride 10 MEQ TAB PO SCH (08:00)
[2018-04-14] MEDS ORDERED: Spironolactone 25 MG TAB PO SCH (08:00)
[2018-04-14] MEDS: Lisinopril 20 MG TAB PO SCH (08:14)
[2018-04-14] MEDS: Dabigatran 150 mg Capsule PO SCH (08:14)
[2018-04-14 08:18] VITALS: BP 140/60
[2018-04-14] MEDS ORDERED: Clopidogrel Bisulfate 75 MG TAB PO SCH (09:00)
[2018-04-14] MEDS ORDERED: Amlodipine 5 MG TAB PO SCH (09:00)
[2018-04-14 09:56] VITALS: TEMP 96.9
--- NOTE | 2018-04-14 10:32 | PRG ---
DATE OF SERVICE: 04/14/2018 DISCHARGE SUMMARY DATE OF ADMISSION: 04/13/2018 DATE OF DISCHARGE: 04/14/2018 HISTORY OF PRESENT ILLNESS: Mr. Slater is an 82-year-old white male that felt poorly yesterday and came to the emergency room and was found to have an indeterminate troponin 1. He has been to the hospital, we followed his troponins which were all basically the same indeterminate and apparently that is what he usually runs. He had no signs or symptoms of congestive heart failure. No chest pain. He states he feels well this morning and feels like he is ready to go back home. There have been some discrepancies with him taking his medication and he says sometimes he takes his twice a day medicines only once a day. He has been informed that he really needs to take that twice a day. The patient is doing much better today and is ready for discharge home. HOME MEDICATIONS: List includes, 1. Tylenol p.r.n. 2. Amlodipine 5 mg once a day or 2.5 mg twice daily. 3. Aspirin 81 mg. 4. Pradaxa 150 mg twice a day. 5. Plavix 75 mg a day. 6. Carvedilol 25 mg twice a day. 7. Lisinopril 20 mg twice a day. 8. Spironolactone 25 mg once a day. 9. Pravastatin 20 mg at bedtime. 10. Gabapentin 300 mg at bedtime. 11. Potassium 10 mEq each day. 12. Tamsulosin or Flomax 0.4 mg daily. 13. MiraLax daily. PHYSICAL EXAMINATION: VITAL SIGNS: This morning reveal blood pressure 120/60, pulse 60, respirations 18-19 with O2 sat of 95%-96% on room air, T-max 98.1. Patient's weight today is 223 pounds. LABORATORY DATA: Reveals laboratories all well. His troponin on admission was 0.033, which went down to 0.029, which went back up to 0.032. His past troponins actually run 0.032 to 0.067, going all the way back to 2013, but there in that range. PHYSICAL EXAMINATION: GENERAL: This is a well-developed and well-nourished, white male who has a very poor memory. He cannot remember what he had for breakfast. HEENT: Reveals normocephalic, nontraumatic cranium. Pupils are equal, round, and reactive. Extraocular movements intact. Nose and throat are slightly dry. NECK: Supple without mass, nodes or bruits. CHEST: Clear to auscultation. No rales, no rhonchi, no wheezes are heard. No cough is noted. HEART: Reveals a 2/6 systolic ejection murmur. An echocardiogram done yesterday reveals some aortic stenosis. The patient's heart has regular rate and rhythm without gallops or rubs. ABDOMEN: Soft, slightly obese, nontender, without organomegaly. Normal bowel sounds are noted in all 4 quadrants. No rebound or guarding is noted. : Deferred. EXTREMITIES: Reveal no clubbing, cyanosis, and no edema is noted again today. NEUROLOGIC: The patient has no significant neurological effects, but he has significant poor memory and cannot really remember to take his medications. We are going to try to set him up with [facility]. IMPRESSION: 1. Indeterminate troponin. 2. History of dizziness, feeling terrible, much improved. 3. Hypertension. 4. Hypercholesterolemia. 5. Coronary artery disease. 6. Systolic and diastolic congestive heart failure followed by Dr. Kasper. 7. History of atrial fibrillation in the past, followed by Dr. Kasper with pacemaker. 8. Coronary artery disease with stents. 9. Sick sinus syndrome with pacemaker. 10. Chronic kidney disease stage 3. 11. Normal pressure hydrocephalus, followed by Dr. Whitney and Dr. Recinos for which he is not taking his Diamox at this time. PLAN: The patient was admitted. His troponins were all stable. He is not having any chest pain. He is not having any signs or symptoms of congestive heart failure and his blood pressure is stable. He is not in atrial fibrillation. He has reached maximum hospital benefit and will be discharged at this time. The patient states he is supposed to see Dr. Kasper probably Friday since he got his echocardiogram. I spent more than 40 minutes dictating and discharging this patient, and going over his records. JACQUELYN
[2018-04-14 11:06] VITALS: BMI 30.2
== END 2018-04-14 11:15 | disposition home or self-care (01) ==
LOC: NAV ERS 09:16 → NAV ACUTE 12:37
PROVIDERS: ADMIT Family Medicine; ATTEND Family Medicine
DX: R79.89 Other specified abnormal findings of blood chemistry (principal); I25.10 Atherosclerotic heart disease of native coronary artery without angina pectoris; I13.0 Hypertensive heart and chronic kidney disease with heart failure and stage 1 through stage 4 chronic kidney disease, or unspecified chronic kidney disease; I50.9 Heart failure, unspecified; N18.3 Chronic kidney disease, stage 3 (moderate); E78.00 Pure hypercholesterolemia, unspecified; Z79.82 Long term (current) use of aspirin; Z79.899 Other long term (current) drug therapy; Z79.02 Long term (current) use of antithrombotics/antiplatelets; Z95.5 Presence of coronary angioplasty implant and graft
CPT/HCPCS: 36416; 71045; 80048; 82553; 84484; 85025; 93005; G0378

== ENCOUNTER 2018-08-11 13:39 | Emergency (ER) | payer MEDICARE ==
[2018-08-11] MEDS ORDERED: Acetaminophen 500 MG TAB ONE (14:10)
[2018-08-11] MEDS ORDERED: Dexamethasone 20 MG/5 ML VIAL ONE (14:11)
== END 2018-08-11 14:21 | disposition home or self-care (01) ==
LOC: NAV ERS 13:39
DX: J06.9 Acute upper respiratory infection, unspecified (principal); I25.10 Atherosclerotic heart disease of native coronary artery without angina pectoris; I48.91 Unspecified atrial fibrillation; E78.5 Hyperlipidemia, unspecified; I11.0 Hypertensive heart disease with heart failure; I50.9 Heart failure, unspecified; Z87.891 Personal history of nicotine dependence; Z79.899 Other long term (current) drug therapy
CPT/HCPCS: 99282; J1100

== ENCOUNTER 2019-08-18 07:22 | Emergency (ER) | payer MEDICARE ==
[2019-08-18 08:34] LABS: #Monocytes 0.4 thou/uL (0.11-0.59); #Neutrophils 3.5 thou/uL (1.40-6.50); %Basophils 0.4 % (0.0-1.0); %Eosinophils 0.7 % (0.0-10.0); %Lymphocytes 19.9 % (21.0-51.0); %Monocytes 8.5 % (0.0-10.0); %Neutrophils 70.6 % (42.0-75.0); ALT (SGPT) 14 U/L (8-55); AST (SGOT) 21 U/L (5-34); Albumin 4.2 g/dL (3.4-4.8); Alkaline Phosphatase 59 U/L (40-110); Anion Gap 13 mmol/L (10-20); BUN (Urea Nitrogen) 22 mg/dL (8.4-25.7); Bilirubin, Total 0.7 mg/dL (0.2-1.2); Calc. Creatinine Clearance 0 mL/min (70-130); Calcium 10.1 mg/dL (7.8-10.44); Carbon Dioxide 27 mmol/L (23-31); Chloride 101 mmol/L (98-107); Estimated GFR-MDRD 46; Globulin 2.9 g/dL (2.4-3.5); Glucose 112 mg/dL (83-110); Hemoglobin 15.1 g/dL (14.0-18.0); Lipase 24 U/L (8-78); Mean Corpuscular HGB CONC 33.5 g/dL (32.0-36.0); Mean Corpuscular Hemoglobin 31.1 pg (27.0-31.0); Mean Corpuscular Volume 92.6 fL (78.0-98.0); Mean Platelet Volume 11.5 fL (7.4-10.4); Platelet Count 119 thou/uL (130-400); Potassium 3.9 mmol/L (3.5-5.1); Protein, Total 7.1 g/dL (5.8-8.1); RBC Distribution Width 11.8 % (11.5-14.5); Red Blood Cell (RBC) Count 4.87 mill/uL (4.70-6.10); Sodium 137 mmol/L (136-145)
[2019-08-18 08:47] LABS: Bilirubin Negative (Negative); Blood, Urine Trace (Negative); Clarity Clear (Clear); Glucose, Urine (Dipstick) Negative (Negative); Leukocyte Negative (Negative); Nitrite Negative (Negative); Protein, Urine (Dipstick) Negative (Neg-Trace)
[2019-08-18] MEDS ORDERED: Sodium Chloride 0.9% 0 ML ONE (08:57)
[2019-08-18] MEDS ORDERED: traMADol HCl 50 MG TAB ONE (08:57)
[2019-08-18] MEDS ORDERED: Sodium Chloride 0.9% 500 ML ONE (08:57)
[2019-08-18] MEDS ORDERED: Iopamidol 370 76% 100 ML VIAL ONE (09:00)
[2019-08-18 09:04] LABS: WBC/HPF 0-3 HPF (0-3)
[2019-08-18 09:05] LABS: Bacteria/HPF None Seen HPF (None Seen)
--- NOTE | 2019-08-18 10:02 | CT ---
CT lumbar spine noncontrast: DATE: 08/18/2019 HISTORY: 84-year-old male with chronic low back pain COMPARISON: 01/06/2018 FINDINGS: 5 lumbar-type vertebrae. Diffuse osteopenia. Vertebral body heights are maintained. Mild disc space n arrowing at L2-3, L3-4, and L4-5. No severe disc space narrowing at any level. No pars interarticularis defects. No high-grade scoliosis. Metallic stent at origin of left renal artery. T12-L1: No central or neural foraminal stenosis. L1-2: Mild diffuse disc bulge. Mild bilateral neural foraminal stenosis. Mild central spinal canal st enosis. Posterior epidural fat pad. Mild to moderate thecal sac stenosis. No high-grade facet DJD. L2-3: Slight degenerative retrolisthesis of L2 on L3 plus diffuse disc bulge result in mild to modera te central spinal canal stenosis. Posterior epidural fat pad. Moderate thecal sac stenosis. Mild to moderate bilateral neural foraminal stenosis. L3-4: Degenerative retrolisthesis of L3 on L4. Prominent diffuse disc bulge. Mild ligamentum flavum t hickening. Posterior epidural fat pad. Moderate central spinal canal stenosis. Severe thecal sac stenosis. Moderate right neural foraminal stenosis. Moderate to severe left neural foraminal stenosis . L4-5: Bilateral moderate to severe facet DJD causes a slight grade 1 anterolisthesis of L4 on L5. Dif fuse disc bulge. Left hemilaminotomy defect. Additional focal small soft tissue density at left lateral recess (subarticular zone) which could be postsurgical scar tissue or herniated disc material . The appearance is similar to previous CT. Mild to moderate central spinal canal stenosis. Moderate thecal sac stenosis. Moderate to severe right neural foraminal stenosis. Severe left neural foraminal stenosis. L5-S1: Moderate bilateral facet DJD. Minimal disc bulge. No high-grade central spinal canal stenosis. The soft tissue density material at the left subarticular zone mentioned on the previous report is not evident on the current study. No other interval change. Bilateral moderate neural foraminal steno sis. IMPRESSION: 1. Lumbar spondylosis consisting of multilevel mild-moderate degenerative disc disease, and lower lev el facet osteoarthrosis (greatest at L4-5 where it causes a mild grade 1 spondylolisthesis). 2. Status post left hemilaminotomy at L4-5. 3. Varying degrees of thecal sac stenosis, worst at L3-4, followed by L4-5. 4. Soft tissue density material at left L4-5 subarticular zone unchanged. 5. Multilevel high-grade bilateral neural foraminal stenosis. 6. Other than lack of visualization of left subarticular zone material at L5-S1 on the current CT, th ere has been no significant interval change.
--- NOTE | 2019-08-18 10:21 | CT ---
CT ABDOMEN AND PELVIS WITH IV CONTRAST: Date: 08/18/19 HISTORY: Left lower quadrant pain, back pain. FINDINGS: There are dependent changes in the lung bases. No calcified gallstones seen. The liver, spleen, pancr eas, and right adrenal gland are normal. There is a 2.0 cm microscopic fat containing mass arising fr om the left adrenal gland consistent with myelolipoma. There are bilateral renal cysts. No free air or lymphadenopathy seen in the abdomen or pelvis. There is a small amount of free fluid i n the pelvis. There are vascular calcifications without evidence of aneurysmal dilatation of the abdo james aorta. A left renal arterial stent is present. There are degenerative changes in the spine. The re is sigmoid diverticulosis. There are radiation therapy beads in the prostate gland. A small hiatal hernia is present. A normal appearing appendix is present. IMPRESSION: 1. Left adrenal myelolipoma. 2. Small hiatal hernia. 3. Sigmoid diverticulosis. 4. Small amount of free fluid in the pelvis. POS: [facility]
== END 2019-08-18 11:15 | disposition home or self-care (01) ==
LOC: NAV ERS 07:22
DX: M54.5 Low back pain (principal); R10.33 Periumbilical pain; R10.817 Generalized abdominal tenderness; I25.10 Atherosclerotic heart disease of native coronary artery without angina pectoris; I50.9 Heart failure, unspecified; I48.91 Unspecified atrial fibrillation; I11.0 Hypertensive heart disease with heart failure; E78.5 Hyperlipidemia, unspecified; Z87.891 Personal history of nicotine dependence; Z79.891 Long term (current) use of opiate analgesic; Z79.899 Other long term (current) drug therapy
CPT/HCPCS: 72131; 74177; 80053; 81003; 81015; 83690; 85025; 96360; J7050; Q9967

== ENCOUNTER 2020-01-03 11:20 | Emergency (ER) | payer MEDICARE ==
[2020-01-03 13:19] LABS: #Lymphocytes 1.2 thou/uL (1.20-3.40); #Monocytes 0.5 thou/uL (0.11-0.59); #Neutrophils 3.6 thou/uL (1.40-6.50); %Basophils 0.3 % (0.0-1.0); %Eosinophils 0.8 % (0.0-10.0); %Monocytes 8.5 % (0.0-10.0); %Neutrophils 68.5 % (42.0-75.0); Differential Comment SCANNED; Hemoglobin 13.7 g/dL (14.0-18.0); Mean Corpuscular Hemoglobin 30.5 pg (27.0-31.0); Mean Corpuscular Volume 95.1 fL (78.0-98.0); Platelet Count 123 thou/uL (130-400); RBC Distribution Width 13.4 % (11.5-14.5); Red Blood Cell (RBC) Count 4.51 mill/uL (4.70-6.10); White Blood Cell (WBC) Count 5.3 thou/uL (4.8-10.8)
[2020-01-03 13:25] LABS: ALT (SGPT) 20 U/L (8-55); AST (SGOT) 23 U/L (5-34); Alkaline Phosphatase 64 U/L (40-110); Anion Gap 15 mmol/L (10-20); BUN (Urea Nitrogen) 15 mg/dL (8.4-25.7); Bilirubin, Total 1.1 mg/dL (0.2-1.2); CK (CPK) 49 U/L (30-200); Calc. Creatinine Clearance 0 mL/min (70-130); Calcium 9.6 mg/dL (7.8-10.44); Carbon Dioxide 24 mmol/L (23-31); Chloride 103 mmol/L (98-107); Estimated GFR-MDRD 62; Globulin 3.1 g/dL (2.4-3.5); Glucose 103 mg/dL (83-110); Potassium 4.1 mmol/L (3.5-5.1); Protein, Total 7.1 g/dL (5.8-8.1); Sodium 138 mmol/L (136-145)
[2020-01-03 13:48] LABS: CKMB 3.6 ng/mL (0-6.6)
[2020-01-03] MEDS ORDERED: Aspirin Chewable 81 MG TAB ONE (14:29)
[2020-01-03] MEDS ORDERED: Carvedilol 25 MG TAB ONE (14:29)
--- NOTE | 2020-01-03 14:45 | RAD ---
Exam: Chest one view portable: HISTORY: Weakness COMPARISON: 04/13/2018 FINDINGS: Left ICD. Borderline heart size. Mild increased markings bilaterally. No confluent pneumonia, overt e ji, pleural effusion. IMPRESSION: Stable chest. Atherosclerosis of the aorta with ectasia.
== END 2020-01-03 16:08 | disposition short-term general hospital (02) ==
LOC: NAV ERS 11:20
DX: R53.1 Weakness (principal); R79.89 Other specified abnormal findings of blood chemistry; R60.0 Localized edema; Z79.891 Long term (current) use of opiate analgesic; Z79.899 Other long term (current) drug therapy
CPT/HCPCS: 71045; 82550; 82553; 84484; 93005

== ENCOUNTER 2021-08-23 09:11 | Emergency (ER) | payer MEDICARE | END 2021-08-23 10:12 | disposition home or self-care (01) | LOC: NAV ERS 09:11 | DX: M54.2 Cervicalgia (principal); I11.0 Hypertensive heart disease with heart failure; I50.9 Heart failure, unspecified; I48.91 Unspecified atrial fibrillation; E78.5 Hyperlipidemia, unspecified; Z87.891 Personal history of nicotine dependence; Z79.899 Other long term (current) drug therapy | CPT/HCPCS: 99283 ==